=== PATIENT | female | born 1965 | race Caucasian/White ===

== ENCOUNTER 2018-08-22 09:26 | Emergency (ER) | payer OTHER ==
[~2018-08-22] VITALS: Ht 162.6 cm; Wt 113.4 kg
[2018-08-22] MEDS ORDERED: SODIUM CHLORIDE 0.9% 1000ML 1,000 ML IV STA (09:46)
[2018-08-22 10:02] LABS: BASOPHILS # (AUTO) 0.1 (0.0-0.1); BASOPHILS % 0.8 % (0.0-1.0); EOSINOPHILS # (AUTO) 0.2 (0.0-0.4); EOSINOPHILS % 3.2 % (0.0-6.0); HEMATOCRIT 42.8 % (34.2-44.1); LYMPHOCYTES # (AUTO) 2.9 (1.0-3.2); LYMPHOCYTES % 47.2 % (18.0-39.1); MEAN CORPUSCULAR VOLUME 94.3 fL (81-99); MONOCYTES # (AUTO) 0.5 (0.2-0.8); MONOCYTES % 7.9 % (4.4-11.3); NEUTROPHILS # (AUTO) 2.5 (2.1-6.9); NEUTROPHILS % 40.6 % (38.7-80.0); PLATELET COUNT 251 x10e3/uL (140-360); RED BLOOD COUNT 4.54 x10e6/uL (3.6-5.1); RED CELL DISTRIBUTION WIDTH 11.9 % (11.7-14.4)
[2018-08-22 10:06] LABS: CLARITY,URINE HAZY (CLEAR); COLOR,URINE YELLOW (YELLOW); LEUKOCYTE ESTERASE ,URINE 1+ (NEGATIVE)
[2018-08-22 10:07] LABS: BILIRUBIN,URINE NEGATIVE (NEGATIVE); KETONES,URINE NEGATIVE (NEGATIVE); NITRITE,URINE NEGATIVE (NEGATIVE); PROTEIN,URINE DIPSTICK NEGATIVE (NEGATIVE); URINE UROBILINOGEN 0.2 mg/dL (0.2 - 1)
[2018-08-22 10:08] LABS: BACTERIA,URINE FEW /HPF; EPITHELIAL CELLS,URINE FEW /LPF; RBC,URINE 0-5 /HPF (0-5); YEAST,URINE RARE
[2018-08-22 10:19] LABS: ALANINE AMINOTRANSFERASE 13 IU/L (0-55); ALBUMIN 3.7 g/dL (3.5-5.0); ALKALINE PHOSPHATASE 87 IU/L (40-150); AMYLASE 21 U/L (25-125); ANION GAP 16.3 mmol/L (8-16); BLOOD UREA NITROGEN 15 mg/dL (7-26); BUN/CREATININE RATIO 20 (6-25); CALCIUM 9.6 mg/dL (8.4-10.2); CARBON DIOXIDE 23 mmol/L (22-29); CHLORIDE 98 mmol/L (98-107); CREATINE KINASE 46 IU/L (29-168); CREATININE, SERUM 0.75 mg/dL (0.57-1.11); EST GLOMERULAR FILTRATION RATE > 60 ML/MIN (60-); GLUCOSE 285 mg/dL (74-118); LIPASE 18 U/L (8-78); MAGNESIUM 2.2 MG/DL (1.3-2.1); POTASSIUM 4.3 mmol/L (3.5-5.1); SODIUM 133 mmol/L (136-145)
[2018-08-22] MEDS ORDERED: DIATRIZOATE MEGL/DIATRIZOA SOD 30 ML BTL PO ONE (10:24)
[2018-08-22] MEDS ORDERED: LISINOPRIL10 MG PO (10:27)
[2018-08-22] MEDS ORDERED: TRESIBA SC (10:27)
[2018-08-22] MEDS ORDERED: CARBAMAZEPINE200 M2 PO (10:27)
[2018-08-22] MEDS ORDERED: FUROSEMIDE40 MG PO (10:27)
[2018-08-22] MEDS ORDERED: VIMPAT200 MG PO (10:27)
[2018-08-22] MEDS ORDERED: LORAZEPAM0.5 MG PO (10:27)
[2018-08-22] MEDS ORDERED: LEVETIRACETAM1000 MG PO (10:27)
[2018-08-22] MEDS ORDERED: HUMALOG100 UNIT/3 (10:27)
[2018-08-22] MEDS ORDERED: VENLAFAXINE HC150 MG PO (10:27)
[2018-08-22] MEDS ORDERED: HYDROCODON-ACE1 EA10 PO (10:27)
[2018-08-22] MEDS ORDERED: VENLAFAXINE H37.5 MG PO (10:27)
[2018-08-22] MEDS ORDERED: PROPRANOLOL HC120 MG PO (10:27)
[2018-08-22] MEDS ORDERED: MORPHINE SULFATE INJ 4 MG/ML INJ IV ONE (10:30)
[2018-08-22] MEDS ORDERED: PANTOPRAZOLE 40 MG 10ML VIAL IV ONE (10:30)
[2018-08-22] MEDS ORDERED: ONDANSETRON HCL INJ 2 MG/ML VIAL IV ONE (10:30)
[2018-08-22] MEDS ORDERED: CEFTRIAXONE SOD 1 GM VIAL IV ONE (10:45)
[2018-08-22] MEDS ORDERED: INSULIN REGULAR, HUMAN 100 UNIT/1 ML 3ML VIAL IV ONE (11:00)
--- NOTE | 2018-08-22 12:40 | Diagnostic Imaging Report ---
EXAMINATION: CT of the abdomen and pelvis with contrast. TECHNIQUE: Spiral CT images of the abdomen and pelvis were performed from the lung bases to the lesser trochanters after the intravenous administration of 100 cc of Isovue 370 and the oral administration of dilute Gastrografin. Coronal and sagittal reformatted images were obtained. COMPARISON: None. CLINICAL HISTORY:Pain in back and left abdomen DISCUSSION: ABDOMEN/PELVIS: LOWER THORAX:Linear atelectasis versus scarring in the lingula HEPATOBILIARY: Diffuse hepatic steatosis. No focal lesions. No intrahepatic biliary ductal dilation. Common bile duct measures 12 mm at the aniket hepatis and 7 mm at the pancreatic head. No radiopaque intraluminal filling defects. GALLBLADDER: Not visualized. SPLEEN: No splenomegaly. PANCREAS: No focal masses or ductal dilatation. 2.2 cm air and oral contrast containing structure between the second portion of the duodenum and the pancreatic head (series 2, image 31), consistent with a duodenal diverticulum. ADRENALS: No adrenal nodules. KIDNEYS/URETERS: 5 and 7 mm nonobstructing calculi in the right interpolar and mid to inferior region (series 2, images 37 and 42, respectively). No other renal or any ureteral calculi. No hydronephrosis or obstruction. No solid enhancing masses. PELVIC ORGANS/BLADDER: Bladder is unremarkable. Uterus unremarkable. No adnexal masses. PERITONEUM/RETROPERITONEUM: No free air or fluid. LYMPH NODES: No intra-abdominal, retroperitoneal, pelvic or inguinal lymphadenopathy. VESSELS: The celiac trunk,superior and inferior mesenteric and bilateral renal arteries are patent The portal, superior mesenteric and splenic veins are patent. GI TRACT: No bowel dilation or evidence of obstruction. No pericolonic inflammatory changes. Mild distal descending and proximal sigmoid diverticulosis, without diverticulitis. BONES AND SOFT TISSUE: No aggressive lytic lesions. Prominent abdominal pannus. IMPRESSION: 1. No acute abdominopelvic abnormalities. No bowel dilation or obstruction.. 2. 5 and 7 mm nonobstructing calculi in the right kidney. No other renal or ureteral calculi, hydronephrosis or obstruction. 3 Diffuse hepatic steatosis. 4. Mild prominence of the common bile duct, likely reflecting post cholecystectomy status. 5. Mild distal descending and proximal sigmoid colon diverticulosis, without diverticulitis. Signed by: Dr. Joce Ashraf M.D. on 08/22/2018 12:37 PM
[2018-08-22 13:11] VITALS: BP 108/96
[2018-08-22] MEDS ORDERED: SODIUM CHLORIDE 0.9% 50ML 50 ML ONE (20:13)
[2018-08-22] MEDS ORDERED: IOPAMIDOL 370 MG/ML 200 ML INFUS..BTL INJ ONE (20:13)
== END 2018-08-22 13:23 | disposition home or self-care (01) ==
LOC: ER 09:26
DX: R10.12 Left upper quadrant pain (principal); R10.32 Left lower quadrant pain; E11.65 Type 2 diabetes mellitus with hyperglycemia; Z79.4 Long term (current) use of insulin; I10 Essential (primary) hypertension; E66.9 Obesity, unspecified; Z68.41 Body mass index [BMI] 40.0-44.9, adult; R56.9 Unspecified convulsions; Z88.6 Allergy status to analgesic agent
CPT/HCPCS: 36415; 74177; 80053; 81001; 82150; 82550; 82553; 83690; 83735; 84484; 85025; 93005; 99284; J0696; J1817; J2270; J2405; J7030; Q9663; Q9967

== ENCOUNTER 2019-11-15 17:34 | Inpatient (IN) | payer OTHER ==
[~2019-11-15] VITALS: Ht 154.9 cm; Wt 126.2 kg
[~2019-11-15 17:34] MED LIST: CARBAMAZEPINE200 M2 PO; ETOMIDATE 2 MG/ML 10 ML INJ IV ONE; FUROSEMIDE40 MG PO; HUMALOG100 UNIT/3; HYDROCODON-ACE1 EA10 PO; LEVETIRACETAM1000 MG PO; LISINOPRIL10 MG PO; LORAZEPAM0.5 MG PO; PROPRANOLOL HC120 MG PO; SUCCINYLCHOLINE CHLORIDE 20 MG/ML 10ML VIAL ONE; TRESIBA SC; VENLAFAXINE H37.5 MG PO; VENLAFAXINE HC150 MG PO; VIMPAT200 MG PO
[2019-11-15] MEDS ORDERED: SODIUM CHLORIDE 0.9% 1000ML 1,000 ML IV STA (17:36)
--- OUTSIDE RECORDS SUMMARY | 2019-11-15 17:37 | XMS REPORT ---
Author Author [facility] Address Unknown Phone Unavailable Care Team Providers Care Family Service Counselor Name Role Phone Oleksandr ASKEW Unavailable Unavailable Marino LUNDBERGUYEN Unavailable Unavailable Problems This patient has no known problems. Allergies, Adverse Reactions, Alerts This patient has no known allergies or adverse reactions. Medications This patient has no known medications. Results Test Description Test Time Test Comments Text Results Atomic Results Result Comments POCT-GLUCOSE METER 2018-10-19 13:28:00 POC-GLUCOSE METER (BEAKER) (test pjxc=4003) 244 mg/dL 70-110 TESTED AT [facility] [address] [place] [id number] TROPONIN [id number] 13:05:00* Test Item Value Reference Range Comments TROPONIN I (BEAKER) (test phdd=794) < ng/mL 0.00-0.03 Troponin I (TnI) levels must be interpreted in the context of the presenting sym ptoms and the clinical findings. Elevated TnI levels indicate myocardial damage, but are not specific for ischemic heart disease. Elevated TnI levels are seen in patients with other cardiac conditions (including myocarditis and congestive h eart failure), and slight TnI elevations occur in patients with other conditions , including sepsis, renal failure, acidosis, acute neurological disease, and per sistent tachyarrhythmia.RAD, CHEST, 2 [id number] 11:52:00Reason for exam:-> HYPOTENSIONReason for exam:->HYPERGLYCEMIAFINAL REPORT Chest, PA and lateral. History: Hypotension. Hyperglycemia. Comparison: 03/14/2015. Discussion: The cardiomediastinal silhouette and pulmonary vasculature are within normal limits. The lungs are clear without evidence of consolidation or effusion. There are no acute osseous abnormalities. The soft tissues are unremarkable. IMPRESSION: No acute cardiopulmonary abnormality. Signed: Isiah Escobar Verified Date/Time: 10/19/2018 11:52:04 Reading Location: [facility] Radiology Reading Room ALYSIS W/ REFLEX URINE [id number] 11:29:00* Test Item Value Reference Range Comments COLOR (BEAKER) (test bsus=414) Light Yellow CLARITY (BEAKER) (test gwqc=864) Clear SPECIFIC GRAVITY UA (BEAKER) (test slds=269) 1.011 1.001-1.035 PH UA (BEAKER) (test cypn=472) 5.0 5.0-8.0 PROTEIN UA (BEAKER) (test tfzo=202) Negative Negative GLUCOSE UA (BEAKER) (test wvzk=644) >1000 mg/dL Negative KETONES UA (BEAKER) (test xztt=866) Negative Negative BILIRUBIN UA (BEAKER) (test tvyl=833) Negative Negative BLOOD UA (BEAKER) (test frwr=124) Negative Negative NITRITE UA (BEAKER) (test qcyb=219) Negative Negative LEUKOCYTE ESTERASE UA (BEAKER) (test zpcn=918) Small Negative UROBILINOGEN UA (BEAKER) (test vcpl=646) 0.2 mg/dL 0.2-1.0 RBC UA (BEAKER) (test idix=776) < /HPF WBC UA (BEAKER) (test lczp=234) 2 /HPF SQUAMOUS EPITHELIAL (BEAKER) (test uuym=384) 2 /HPF CRYSTALS, URINE (BEAKER) (test zqbt=7643) Rare SOURCE(BEAKER) (test txkx=5410) BLOOD GAS, [id number] 11:21:00* Test Item Value Reference Range Comments PH VENOUS (BEAKER) (test orgc=850) 7.33 7.32-7.42 PCO2 VENOUS (BEAKER) (test fnxf=766) 56 mmHg 41-51 PO2 VENOUS (BEAKER) (test vump=331) 34 mmHg 25-40 O2 SATURATION VENOUS (BEAKER) (test rwso=206) 55.8 % 40.0-70.0 HCO3 VENOUS (BEAKER) (test pudi=895) 28 mmol/L 21-29 BASE EXCESS VENOUS (BEAKER) (test xyzt=761) 1.5 mmol/L -2.0-3.0 PATIENT TEMPERATURE (BEAKER) (test qhmu=7189) 38.0 C FIO2 (BEAKER) (test xsld=4974) 21.0 % CT, BRAIN, WITHOUT [id number] 10:58:00Reason for exam:-> HYPOTENSIONReason for exam:->HYPERGLYCEMIAReason for exam:->dizzinessIs the patient ?->NoWhat is the patient's sedation requirement?->No Sedation FINAL REPORT CT, BRAIN, WITHOUT CONTRAST CLINICAL INDICAT ION: DizzinessHYPOTENSIONHYPERGLYCEMIAdizziness COMPARISON: September 09, 2012 T ECHNIQUE: Noncontrast axial CT imaging of the brain and skull. DOSE REDUCTION: Dose modulation, iterative reconstruction, and/or weight-based adjustment of the mA/kV was utilized to reduce the radiation dose to as low as reasonably achiev able. FINDINGS:Cerebral parenchyma: Unremarkable.Midline structures: Normally po sitioned.Cerebellum and brainstem: Normal.Ventricles: Normal volume.Extra-axial spaces: Unremarkable. Calvarium and skull base: Intact.Paranasal sinuses and mas toid air cells: Visible chambers are clear.Orbital contents: Included portions u nremarkable. Additional findings: None. IMPRESSION: No acute intracranial abnor mality. If there is persistent clinical concern for intracranial pathology, MR e xamination is recommended for further characterization. Signed: JR Daley Robert MDReport Verified Date/Time: 10/19/2018 10:58:52 Reading Location: [address] Neuro Reading Room ONIN [id number] 10:41:00* Test Item Value Reference Range Comments TROPONIN I (BENICA) (test kydc=186) < ng/mL 0.00-0.03 Troponin I (TnI) levels must be interpreted in the context of the presenting sym ptoms and the clinical findings. Elevated TnI levels indicate myocardial damage, but are not specific for ischemic heart disease. Elevated TnI levels are seen in patients with other cardiac conditions (including myocarditis and congestive h eart failure), and slight TnI elevations occur in patients with other conditions , including sepsis, renal failure, acidosis, acute neurological disease, and per sistent tachyarrhythmia.[id number] 10:33:00* Test Item Value Reference Range Comments MAGNESIUM (BEAKER) (test tfnx=454) 1.6 mg/dL 1.6-2.6 BASIC METABOLIC [id number] 10:33:00* Test Item Value Reference Range Comments SODIUM (BEAKER) (test stns=309) 134 meq/L 136-145 POTASSIUM (BEAKER) (test oroe=226) 3.9 meq/L 3.5-5.1 CHLORIDE (BEAKER) (test fjsh=565) 100 meq/L 98-107 CO2 (BEAKER) (test glol=876) 22 meq/L 22-29 BLOOD UREA NITROGEN (BEAKER) (test lrfa=015) 12 mg/dL 7-21 CREATININE (BEAKER) (test ixlc=060) 0.72 mg/dL 0.57-1.25 GLUCOSE RANDOM (BEAKER) (test nvbw=756) 355 mg/dL 70-105 CALCIUM (BEAKER) (test tniy=315) 8.6 mg/dL 8.4-10.2 EGFR (BEAKER) (test owkp=7014) 85 mL/min/1.73 sq m ESTIMATED GFR IS NOT ACCURATE CREATININE CLEARANCE IN PREDICTING GLOMERULAR FILTRATION RATE. ESTIMATED GFR IS NOT APPLICABLE FOR DIALYSIS PATIENTS. CBC W/PLT COUNT & AUTO [id number] 10:14:00* Test Item Value Reference Range Comments WHITE BLOOD CELL COUNT (BEAKER) (test utbo=391) 6.6 K/ L 3.5-10.5 RED BLOOD CELL COUNT (BEAKER) (test knso=621) 4.19 M/ L 3.93-5.22 HEMOGLOBIN (BEAKER) (test bkmw=931) 13.9 GM/DL 11.2-15.7 HEMATOCRIT (BEAKER) (test ypki=937) 41.5 % 34.1-44.9 MEAN CORPUSCULAR VOLUME (BEAKER) (test hbqn=954) 99.0 fL 79.4-94.8 MEAN CORPUSCULAR HEMOGLOBIN (BEAKER) (test akgf=402) 33.2 pg 25.6-32.2 MEAN CORPUSCULAR HEMOGLOBIN CONC (BEAKER) (test vfxb=203) 33.5 GM/DL 32.2-35.5 RED CELL DISTRIBUTION WIDTH (BEAKER) (test tpin=025) 12.4 % 11.7-14.4 PLATELET COUNT (BEAKER) (test nrqt=302) 212 K/CU MM 150-450 MEAN PLATELET VOLUME (BEAKER) (test hira=484) 9.4 fL 9.4-12.3 NUCLEATED RED BLOOD CELLS (BEAKER) (test zqxc=556) 0 /100 WBC 0-0 NEUTROPHILS RELATIVE PERCENT (BEAKER) (test mczv=218) 59 % LYMPHOCYTES RELATIVE PERCENT (BEAKER) (test fsjz=871) 31 % MONOCYTES RELATIVE PERCENT (BEAKER) (test xbpw=326) 8 % EOSINOPHILS RELATIVE PERCENT (BEAKER) (test aefj=180) 2 % BASOPHILS RELATIVE PERCENT (BEAKER) (test jwog=758) 1 % NEUTROPHILS ABSOLUTE COUNT (BEAKER) (test oein=840) 3.85 K/ L 1.56-6.13 LYMPHOCYTES ABSOLUTE COUNT (BEAKER) (test qgmw=758) 2.04 K/ L 1.18-3.74 MONOCYTES ABSOLUTE COUNT (BEAKER) (test thnu=052) 0.50 K/ L 0.24-0.36 EOSINOPHILS ABSOLUTE COUNT (BEAKER) (test hbdw=295) 0.11 K/ L 0.04-0.36 BASOPHILS ABSOLUTE COUNT (BEAKER) (test ptwc=053) 0.04 K/ L 0.01-0.08 IMMATURE GRANULOCYTES-RELATIVE PERCENT (BEAKER) (test jvud=5191) 0 % 0-1 POCT-GLUCOSE [id number] 09:48:00* Test Item Value Reference Range Comments POC-GLUCOSE METER (BEAKER) (test jluf=2620) 346 mg/dL 70-110 TESTED AT [address] [address] MR, SPINE, THORACIC, WITHOUT [id number] 11:30:00FINAL REPORT MR Thoracic spine without contrast. CLINICAL HISTORY: PAIN IN THORACIC SPINE TECHNIQUE: MRI of the thoracic spine utilizing sagittal T1, T2, STIR, and axial T1, T2-weighted images. COMPARISON: None FINDINGS: There is maintenance of the thoracic curvature and alignment. The vertebral body heights and marrow signal are maintained. At T4-T5, there is a 2 mm right paracentral disc protrusion contacting the cord without significant deformity or central canal stenosis. At T8-T9, there is a 3 mm right paracentral disc protrusion contouring the ventral right cord without reactive cord signal or significant central canal stenosis. The thoracic disc levels are otherwise unremarkable w ithout central canal stenosis. The thoracic cord is otherwise normal contour and caliber without signal abnormality. IMPRESSION: At T4-T5 and T8-T9, small right paracentral disc protrusions contact the cord without abnormal cord signal or s ignificant central canal stenosis. Signed: Yenifer Lopez MDReport Verified Date/ Time: 08/26/2018 11:30:02 Reading Location: [facility]013[facility] Neuro Reading Room ABDOMEN/PELVIS [id number] 12:30:00 [place] [address] Patient Name: JOHAN DE SOUZA MR #: [id number] : 1965 Age/Sex: 52/F Req #: [id number] Adm Physician: Ordered by: ANNIE LUNDBERG MD Report #: [id number] Location: ER Room/Bed: Procedure: [id number] CT /CT ABDOMEN/PELVIS W Exam Date: Exam Time: REPORT STATUS: Signed EXAMINATION: CT of the abdomen and pelvis with contrast. TECHNIQUE: Spiral CT images of the abdomen and pelvis were performed from the lung bases to the lesser trochan ters after the intravenous administration of 100 cc of Isovue 370 and the oral administration of dilute Gastrografin. Coronal and sagittal reformatted imag es were obtained. COMPARISON: None. CLINICAL HISTORY:Pain in back and left abdomen DISCUSSION: ABDOMEN/PELVIS: LOWER THORAX:Linear atelectasis versus scarring in the lingula HEPATOBILIARY: Diffuse hepatic steatosis. No focal lesions. No intrahepatic biliary ductal dilation. Common bile duct measures 12 mm at the aniket hepatis and 7 mm at the pancreatic head. No radiopaque intraluminal filling defects. GALLBLADDER: Not visualized. SPLEEN: No splenomegaly. PANCREAS: No focal masses or ductal dila tation. 2.2 cm air and oral contrast containing structure between the second p ortion of the duodenum and the pancreatic head (series 2, image 31), consisten t with a duodenal diverticulum. ADRENALS: No adrenal nodules. KIDNEYS/ URETERS: 5 and 7 mm nonobstructing calculi in the right interpolar and mid to inferior region (series 2, images 37 and 42, respectively). No other renal or any ureteral calculi. No hydronephrosis or obstruction. No solid enhancing mas ses. PELVIC ORGANS/BLADDER: Bladder is unremarkable. Uterus unremarkable. N o adnexal masses. PERITONEUM/RETROPERITONEUM: No free air or fluid. LYMPH NODES: No intra-abdominal, retroperitoneal, pelvic or inguinal lymphaden opathy. VESSELS: The celiac trunk,superior and inferior mesenteric and bila teral renal arteries are patent The portal, superior mesenteric and splenic veins are patent. GI TRACT: No bowel dilation or evidence of obstruction. No pericolonic inflammatory changes. Mild distal descending and proximal sigm oid diverticulosis, without diverticulitis. BONES AND SOFT TISSUE: No agg ressive lytic lesions. Prominent abdominal pannus. IMPRESSION: 1. No acute abdominopelvic abnormalities. No bowel dilation or obstruction.. 2. 5 and 7 mm nonobstructing calculi in the right kidney. No other renal or ur eteral calculi, hydronephrosis or obstruction. 3 Diffuse hepatic steatosis. 4. Mild prominence of the common bile duct, likely reflecting post cholecystec najma status. 5. Mild distal descending and proximal sigmoid colon diverticulos is, without diverticulitis. Signed by: Dr. Rogelio Ashraf M.D. on 12:37 PM Dictated By: ROGELIO ASHRAF MD 1237 Transcribed By: CHRIS on 08/22/18 1237 COPY TO: ANNIE LUNDBERG MD
[2019-11-15] MEDS ORDERED: DEXTROSE 50% SYRINGE 50 ML IV STA (17:44)
[2019-11-15] MEDS ORDERED: CALCIUM GLUCONATE 10% INJ 4.65 MEQ in SODIUM CHLORIDE 0.9% 50ML 50 ML IV ONE (17:45)
[2019-11-15] MEDS ORDERED: GLUCAGON FOR INJ 1 MG VIAL IV ONE (17:45)
--- NOTE | 2019-11-15 18:00 | NUR ---
client unable to maintain her own airway, client having sonorous respirations. client o2 sats down to 88%, Dr. Monroe made aware. Dr. Monroe requested central line kit and RT as well as inutabation meds and equipment at bedside.
[2019-11-15] MEDS: PROPOFOL IV EMULSION 10MG/ML 100 ML IV PRN (18:08)
[2019-11-15] MEDS ORDERED: PROPOFOL IV EMULSION 10MG/ML 100 ML ONE (18:08)
[2019-11-15] MEDS ORDERED: SUCCINYLCHOLINE CHLORIDE 20 MG/ML 10ML VIAL IV STA (18:21)
[2019-11-15] MEDS ORDERED: ETOMIDATE 2 MG/ML 10 ML INJ IV STA (18:21)
[2019-11-15] MEDS ORDERED: PROPOFOL IV EMULSION 10MG/ML 100ML BTL IV PRN (18:30)
[2019-11-15] MEDS ORDERED: LEVETIRACETAM 500MG/5ML VIAL 500 MG in SODIUM CHLORIDE 0.9% 100 ML 100 ML IV SCH (18:30)
[2019-11-15 19:22] LABS: ABG PCO2 35 mmHg (41-51); ABG PH 7.44 (7.31-7.41); ABG PO2 182 mmHg (80-105)
[2019-11-15 19:23] LABS: ABG HCO3 24 mmol/L (23-28)
[2019-11-15] MEDS: SODIUM CHLORIDE 0.9% 1000ML 1,000 ML IV SCH (19:55)
[2019-11-15 20:23] LABS: BASOPHILS # (AUTO) 0.1 (0.0-0.1); BASOPHILS % 0.4 % (0.0-1.0); EOSINOPHILS % 0.2 % (0.0-6.0); HEMATOCRIT 39.4 % (34.2-44.1); HEMOGLOBIN 13.6 g/dL (12.0-16.0); LYMPHOCYTES # (AUTO) 1.5 (1.0-3.2); LYMPHOCYTES % 12.5 % (18.0-39.1); MEAN CORPUSCULAR HEMOGLOBIN 32.9 pg (28-32); MEAN CORPUSCULAR HGB CONC 34.5 g/dL (31-35); MEAN CORPUSCULAR VOLUME 95.4 fL (81-99); MONOCYTES # (AUTO) 0.5 (0.2-0.8); MONOCYTES % 4.3 % (4.4-11.3); NEUTROPHILS # (AUTO) 9.8 (2.1-6.9); NEUTROPHILS % 81.9 % (38.7-80.0); PLATELET COUNT 229 x10e3/uL (140-360); RED BLOOD COUNT 4.13 x10e6/uL (3.6-5.1); RED CELL DISTRIBUTION WIDTH 11.9 % (11.7-14.4)
[2019-11-15 20:43] LABS: ALANINE AMINOTRANSFERASE 25 IU/L (0-55); ALBUMIN 2.9 g/dL (3.5-5.0); ALKALINE PHOSPHATASE 77 IU/L (40-150); ANION GAP 14.7 mmol/L (8-16); BLOOD UREA NITROGEN 14 mg/dL (7-26); BUN/CREATININE RATIO 20 (6-25); CALCIUM 8.1 mg/dL (8.4-10.2); CARBON DIOXIDE 24 mmol/L (22-29); CHLORIDE 103 mmol/L (98-107); CREATINE KINASE 47 IU/L (29-168); CREATININE, SERUM 0.69 mg/dL (0.57-1.11); EST GLOMERULAR FILTRATION RATE > 60 ML/MIN (60-); GLUCOSE 147 mg/dL (74-118); POTASSIUM 3.7 mmol/L (3.5-5.1); SODIUM 138 mmol/L (136-145)
[2019-11-15] MEDS ORDERED: DEXTROSE 50% SYRINGE 50 ML IV ONE (20:51)
--- NOTE | 2019-11-15 21:04 | Diagnostic Imaging Report ---
EXAM: CHEST SINGLE (PORTABLE) DATE: 11/15/2019 5:36 PM INDICATION: Requisition indicates overdose ^ERMD ORDER ^Y COMPARISON: None FINDINGS: Lines and tubes: Endotracheal tube is present with the tip approximately 1.5 cm above the shelley. Cardiac silhouette appears enlarged, likely accentuated by low lung volumes. Patchy opacities are present in both upper lobes. There is atelectasis at the left lung base. No pneumothorax is evident. Upper abdomen unremarkable. No acute bony abnormality. IMPRESSION: 1. Apparent cardiomegaly and bilateral pulmonary opacities. Findings may be accentuated by low lung volumes. Multifocal pneumonia or aspiration is also a consideration. 2. Endotracheal tube with the tip 1.5 cm from the shelley. Signed by: Dr. Luis Johnston M.D. on 11/15/2019 9:01 PM
[2019-11-15 21:43] LABS: SALICYLATE < 5.0 mg/dL (0-30)
[2019-11-15 21:59] LABS: CLARITY,URINE SL CLOUDY (CLEAR); COLOR,URINE YELLOW (YELLOW)
[2019-11-15 22:00] LABS: AMPHETAMINES SCREEN,URINE NEGATIVE (NEGATIVE); BENZODIAZEPINES SCREEN,URINE NEGATIVE (NEGATIVE); BILIRUBIN,URINE NEGATIVE (NEGATIVE); KETONES,URINE NEGATIVE (NEGATIVE); LEUKOCYTE ESTERASE ,URINE NEGATIVE (NEGATIVE); NITRITE,URINE NEGATIVE (NEGATIVE); PHENCYCLIDINE SCREEN,URINE NEGATIVE (NEGATIVE); PROTEIN,URINE DIPSTICK NEGATIVE (NEGATIVE); URINE UROBILINOGEN 0.2 mg/dL (0.2 - 1)
[2019-11-15 22:11] LABS: BACTERIA,URINE FEW /HPF; EPITHELIAL CELLS,URINE FEW /LPF; HYALINE CASTS 0-1 (0-1)
[2019-11-15] MEDS ORDERED: HYDRALAZINE HCL 20 MG/ML VIAL IV PRN (22:15)
[2019-11-15] MEDS ORDERED: ONDANSETRON HCL INJ 2MG/ML 2ML 2 MG/ML VIAL IV PRN (22:15)
[2019-11-15 22:47] VITALS: BP 126/66
[2019-11-15 23:00] VITALS: BP 100/60
[2019-11-15] MEDS ORDERED: DEXTROSE 50% SYRINGE 50 ML IV PRN (23:15)
[2019-11-15] MEDS ORDERED: CARBAMAZEPINE 200 MG TAB PO ONE (23:30)
[2019-11-15] MEDS ORDERED: ENOXAPARIN SOD INJ 40 MG/0.4 ML SYR SC ONE (23:30)
[2019-11-16] VITALS (27 sets, daily range): BP systolic 93–154; BP diastolic 34–98
[2019-11-16] MEDS: WATER STERILE FOR IRRIG 1000 ML PLCT IR SCH ×7 (00:01→22:00)
[2019-11-16] MEDS ORDERED: LEVETIRACETAM 500 MG/5 ML VIAL IV ONE (00:16)
[2019-11-16] MEDS ORDERED: SODIUM CHLORIDE 0.9% 100 ML ONE (00:18)
[2019-11-16] MEDS: LEVETIRACETAM 500MG/5ML VIAL 1,000 MG in SODIUM CHLORIDE 0.9% 100 ML 100 ML IV SCH ×3 (00:19→21:50)
[2019-11-16] MEDS: PIPER-TAZ 3.375 GM 50 ML IV SCH ×4 (00:19→22:40)
--- NOTE | 2019-11-16 01:27 | NUR ---
RECEIVED CALL FROM AMAN WITH THE [facility] IN [place] TO RECEIVE UPDATES ON PATIENT STATUS. UPDATES GIVEN. PATIENTS CASE #[id number]
--- NOTE | 2019-11-16 01:30 | History and Physical ---
CHIEF COMPLAINT: Drug overdose, suicide attempt. HISTORY OF PRESENT ILLNESS: A 53-year-old female, morbidly obese, history of type 2 diabetes, seizures on 3 antiseizure medications, hypertension, also history of depression on anti-depression medications, presented from home after a suicide attempt with home medications. According to the at bedside, the patient has been voicing over the last 2 months that she wanted to hurt herself. Of note, she has voiced that she wanted to go and because her mom several years ago. He reports that she has been having uncontrolled diabetes as well as multiple frequencies in her seizures recently, in which she felt very tired of dealing with all these comorbidities. Of note, about 10 years ago, she had a suicide attempt according to the nursing staff when they interviewed the , but during my interview, he denies that this ever occurred 10 years ago. The patient took approximately 78 tablets of propranolol at home as well as some possible opioids, presumed to be tramadol, unknown amount. The patient was brought in by the family and was immediately intubated by the ER physician. The patient was seen and evaluated at bedside on the medical floor. She is currently intubated on sedation with propofol. I interviewed the family at bedside and I asked all the questions pertinent to this particular case. REVIEW OF SYSTEMS: Drug overdose, unable to obtain the rest of the 14-point review of systems as the patient is currently intubated. ALLERGIES: TO TOPIRAMATE. MEDICATIONS: Home medications currently not available at this time, but we do know she takes Keppra, Vimpat, carbamazepine, as well as lisinopril according to the . PAST MEDICAL HISTORY: Hypertension, seizures, history of depression, history of a suicide attempt in the past. PAST SURGICAL HISTORY: Unknown. FAMILY HISTORY: Hypertension and diabetes. SOCIAL HISTORY: She is . No reports of drugs, alcohol, or any smoking history. She has children. LABORATORY FINDINGS: Show white count 11.9, hemoglobin 13.6, hematocrit 39, and platelets of 229. Blood gas shows a pH of 7.44, pCO2 of 35, PaO2 of 182, bicarbonate 24. Chemistry, sodium 138, potassium 3.7, chloride 103, bicarb 24, anion gap of 14. BUN is 14, creatinine 0.69. Glucose 147, lactic acid 1.5, calcium 8.1, total bilirubin 0.4. AST 50, ALT 25, alkaline phosphatase 77. CK 47, troponin 0.130, total protein 5.8, albumin 2.9. Urinalysis was negative. Urine drug screen negative. Acetaminophen negative. Salicylate negative. Ethyl alcohol negative. MICROBIOLOGY: Blood cultures are pending. IMAGING STUDIES: Chest x-ray shows cardiomegaly with bilateral pulmonary opacities. Consistent with possible pneumonia or aspiration. PHYSICAL EXAMINATION: VITAL SIGNS: Temperature is 97.2, pulse 48, respiratory rate is 16. Her blood pressure last one recorded 105/56, pulse ox 100%. She is on a mechanical ventilator. GENERAL: Intubated and sedated. HEENT: Intubated and sedated. PULMONARY: Clear to auscultation bilaterally. No wheezing, rales, or rhonchi. No crackles appreciated. CARDIOVASCULAR: Positive S1, S2. No murmurs, rubs, or gallops appreciated. ABDOMEN: Soft, nondistended, and nontender to palpation. Bowel sounds present. MUSCULOSKELETAL: Unable to assess, currently on sedation. NEUROLOGIC: Currently on sedation. SKIN: Intact. Warm to touch. Good cap refill. PSYCHIATRIC: Currently sedated. EXTREMITIES: No edema appreciated. IMPRESSION: 1. Acute respiratory failure, secondary to drug overdose, now on mechanical ventilator. 2. Suicide attempt with drug overdose, history of suicide attempt. 3. Aspiration pneumonia. 4. History of seizures. 5. History of type 2 diabetes. 6. Hypertension. PLAN: At this time, the patient is intubated, sedated, currently pretty stable. Pulmonary Critical Care was consulted for critical care management. As for her possible aspiration pneumonia, blood cultures have been collected, was started on IV Zosyn. As for history of seizures, we are going to restart all her antiseizure medications once they are available from the family. She is on Keppra, currently IV. We will get Neurology consultation as well. As for her drug overdose, Psychiatry is consulted after post extubation for possible inpatient psychiatric evaluation. The patient has had attempts in the past apparently about 10 years ago. We are going to restart her on insulin sliding scale. For now, she may be extubated tomorrow if she does well, so we will consider alternative nutrition with an OG tube if still intubated. She will be on Lovenox for DVT prophylaxis. CONSULTANTS INVOLVED: Pulmonary Critical Care, Neurology, and Psychiatry. The patient is currently in the ICU and we will continue to follow. I had a long discussion with the family at bedside and discussed overall plan of care with the Critical Care physician present as well. They verbalized understanding. Agree with plan of care. MD SHANITA Marx/MODL /[id number]
[2019-11-16] MEDS: PROPOFOL IV EMULSION 10MG/ML 100 ML IV PRN (03:23)
[2019-11-16 05:12] LABS: BASOPHILS % 0.4 % (0.0-1.0); EOSINOPHILS % 0.4 % (0.0-6.0); HEMOGLOBIN 12.6 g/dL (12.0-16.0); LYMPHOCYTES # (AUTO) 2.3 (1.0-3.2); LYMPHOCYTES % 21.4 % (18.0-39.1); MEAN CORPUSCULAR HEMOGLOBIN 32.3 pg (28-32); MEAN CORPUSCULAR HGB CONC 34.1 g/dL (31-35); MEAN CORPUSCULAR VOLUME 94.9 fL (81-99); NEUTROPHILS # (AUTO) 7.3 (2.1-6.9); NEUTROPHILS % 68.4 % (38.7-80.0); PLATELET COUNT 206 x10e3/uL (140-360); RED CELL DISTRIBUTION WIDTH 11.9 % (11.7-14.4)
--- NOTE | 2019-11-16 05:30 | Consultation ---
DATE OF CONSULTATION: 11/15/2019 Pulmonary Critical Care Consult REASON FOR REFERRAL: Respiratory failure. HISTORY OF PRESENT ILLNESS: Ms. Jensen is a pleasant 53-year-old female with acute respiratory failure. The patient with longstanding history of epilepsy, currently on 3 therapy. She at baseline often has 2 to 3 events per week. Often, petit mal events as family states. The patient with history of depression as well and is on Effexor 175 mg a day. Recent patient neurologist changed therapy and changed medications. For the last 3 days, the patient has been sighting more and more dissatisfaction with her life. Today, letter was found by family. Suicide note found the patient was not present but the patient was found in the field somewhere in the neighborhood. The patient reportedly took at least seven propranolol and 2 to 3 trazodone. The patient came to emergency room and was noted with heart rate to 46, blood pressure 93/63. Temperature 96.4 rectal. The patient clinically had excess saliva in her throat and possibly aspirated. The patient was brought to emergency room for emergency evaluation. At this point, the patient was immediately intubated due to poor mentation and inability to protect airway. Chest x-ray with bilateral lung opacities considering the possibility of multifocal pneumonia/aspiration. The patient's creatinine was 0.69, calcium 8.1, 3.7 potassium, LFTs mostly unremarkable with albumin 2.9. The patient was given some emergency treatment for beta-alvin toxicity. I am consulted. PAST MEDICAL HISTORY: Hypertension, diabetes, on injections, neurologic, epilepsy, history of cavernous malformation of brain, depression. MEDICATIONS: Medications list per nursing record, reviewed records that were present. ALLERGIES: TOPIRAMATE. SOCIAL HISTORY: No smoking, no drinking, no drugs. Her is with [employer], clergy. FAMILY HISTORY: Noncontributory. REVIEW OF SYSTEMS: Cannot get as the patient is intubated. OBJECTIVE: VITAL SIGNS: Noted, reviewed per the chart record. Now on pressors, on propofol and normal saline IV fluid. Blood pressure up to 150s/40s. GENERAL: Appears to be waking up on ventilator, intubated. HEENT: Normocephalic, atraumatic. NECK: Supple. Throat midline. LUNGS: Bilateral air entry, moderate rhonchi bilaterally, few rales bilaterally. CARDIOVASCULAR: S1, S2. No murmurs, rubs, or gallops. ABDOMEN: Soft, nontender. EXTREMITIES: No clubbing, no cyanosis. There is no edema. INTEGUMENT: No rash or purpura. LABORATORY DATA: Urinalysis with no significant urinary sediment. IMPRESSION AND PLAN: 1. Acute respiratory failure, intubated. 2. Encephalopathy, under evaluation. Toxic/metabolic plus minus other etiologies. 3. Aspiration pneumonitis. 4. negative pressure pulmonary edema. 5. History of epilepsy, cavernous malformation, brain. 6. Hypertension. 7. Diabetes. 8. Depression. 9. Suicide attempt. Continue current treatment. Maintain intubated. Ventilator support. Follow up the opacities in the lungs. Unclear if the patient will be extubated will depend on how the lung capacity is evolved in the next day. Continue IV fluids. Glucagon as needed. Pressors as needed. Atropine as needed for any bradycardia, but the patient looks to be better controlled and hopefully the propranolol is wearing off. Greater than 30 minutes in direct care on this day and coordination review. Thank you very much, Dr. Pelaez, for this consult. Please call for questions. MD HALEIGH Hobbs/MODL /[id number]
[2019-11-16 05:56] LABS: CREATINE KINASE MB 1.4 ng/mL (0-5.0)
[2019-11-16 06:08] LABS: ALANINE AMINOTRANSFERASE 21 IU/L (0-55); ALBUMIN 2.8 g/dL (3.5-5.0); ALKALINE PHOSPHATASE 72 IU/L (40-150); BLOOD UREA NITROGEN 10 mg/dL (7-26); BUN/CREATININE RATIO 17 (6-25); CARBON DIOXIDE 23 mmol/L (22-29); CHLORIDE 108 mmol/L (98-107); EST GLOMERULAR FILTRATION RATE > 60 ML/MIN (60-); GLUCOSE 89 mg/dL (74-118); SODIUM 141 mmol/L (136-145)
[2019-11-16 06:09] LABS: MAGNESIUM 1.5 MG/DL (1.3-2.1); PHOSPHORUS 3.4 MG/DL (2.3-4.7)
--- NOTE | 2019-11-16 06:31 | Diagnostic Imaging Report ---
EXAMINATION: CHEST SINGLE (PORTABLE) COMPARISON: Chest x-ray 11/15/2019 INDICATION: Intubated ^pneumonia ^[id number] ^0540 DISCUSSION: Frontal view of the chest obtained at 0542 hours. HEART AND MEDIASTINUM: Stable cardiomegaly. LINES: Endotracheal tube terminates 2 to 3 cm above the shelley. Enteric tube extends past the diaphragm LUNGS: Low lung volumes and bibasilar atelectasis. Alveolar edema is improving. PLEURA: No large effusions. No pneumothorax. BONES AND SOFT TISSUES: No focal osseous lesion. The soft tissues are normal. IMPRESSION: Support devices as described above. Low lung volumes and bibasilar atelectasis. Improved alveolar edema. Signed by: Dr. Raquel Pruett MD on 11/16/2019 6:29 AM
[2019-11-16] MEDS: SODIUM CHLORIDE 0.9% 1000ML 1,000 ML IV SCH ×3 (06:32→22:40)
[2019-11-16] MEDS: INSULIN REGULAR, HUMAN 100 UNIT/1 ML 3ML VIAL SQ SCH ×4 (07:30→21:00)
[2019-11-16] MEDS ORDERED: POTASSIUM CHLORIDE 20MEQ/100ML 200 ML IV ONE (08:00)
[2019-11-16] MEDS: ACETAMINOPHEN 325 MG TAB PO PRN ×2 (08:33→17:32)
[2019-11-16] MEDS ORDERED: CARBAMAZEPINE 200 MG TAB PO SCH (09:00)
[2019-11-16] MEDS ORDERED: LORAZEPAM INJ 2 MG/ML VIAL IM PRN (11:30)
[2019-11-16] MEDS ORDERED: HALOPERIDOL LACTATE 5 MG/ML VIAL IM PRN (11:30)
--- NOTE | 2019-11-16 12:09 | NUR ---
Pulmonary Critical Care Medicine DATE 11/16/2019 SUBJECTIVE: PATIENT wide awake today, despite propofol 10 mcg/kg/hr patient with VC 1.4 NIF -30, oxygen weaned to 40% fio2 still intubated moderate thick airway secretions CXR better REVIEW OF SYSTEMS: Cannot get as the patient is intubated. OBJECTIVE: VITAL SIGNS: Reviewed per the chart record. GENERAL: Awake on ventilator, intubated. HEENT: Normocephalic, atraumatic. NECK: Supple. Throat midline. LUNGS: Bilateral air entry, moderate rhonchi bilaterally CARDIOVASCULAR: S1, S2. No murmurs, rubs, or gallops. ABDOMEN: Soft, nontender. EXTREMITIES: No clubbing, no cyanosis. no edema. INTEGUMENT: No rash or purpura. LABORATORY DATA: k 3.0, cr 0.6. wbc 10.6, plt 206 IMPRESSION AND PLAN: 1. Acute respiratory failure, intubated. 2. Encephalopathy, under evaluation. Toxic/metabolic. 3. Aspiration pneumonitis. 5. History of epilepsy, cavernous malformation 6. Hypertension. 7. Diabetes. 8. Depression. 9. Suicide attempt. 78 propanolol, few tramadol Maintain intubated. Ventilator support. Weaning / SAT / SBT Encourage expectoration, significant aspiration surmised. But patient is clinically strong with excellent weaning parameters/mechanics Continue IV fluids. Will need sitter after extubation Thank you very much, Dr. Pelaez, for this consult. Please call for questions. Greater than 30 minutes in direct care on this day and coordination, including acquisition of sitter
[2019-11-16] MEDS ORDERED: CARBAMAZEPINE 100 MG TAB PO ONE (12:30)
[2019-11-16] MEDS ORDERED: HOME MEDICATION--PATIENTS OWN PO SCH (13:00)
[2019-11-16] MEDS ORDERED: CARBAMAZEPINE 200 MG TAB PO ONE (13:00)
[2019-11-16] MEDS ORDERED: VIMPAT 200 MG PO SCH (13:45)
[2019-11-16] MEDS: ENOXAPARIN SOD INJ 40 MG/0.4 ML SYR SC SCH (16:06)
[2019-11-16] MEDS ORDERED: VIMPAT 200 MG PO ONE (16:30)
--- NOTE | 2019-11-16 16:30 | NUR ---
INFORMED PT IS A ANGEL SCHUSTER. INFORMED DR. RICHARDSON OF THIS. Addendum: 11/16/19 at [address] BILLINGSLEY IS THE ANGEL TELLO.
--- NOTE | 2019-11-16 19:23 | NUR ---
Pt's requested RN use pt's glucometer scanner on upper L arm device instead of sticking the patient for blood sugars. brought glucometer scanner to bedside. Dr. Mills's office and Dr. Muro notified of new consults. Dr. Milan informed of potassium, replacement orders given. Orders given to wean, sedation held, respiratory at bedside. Dr. Milan instructed seizure meds to be givne thru NGT before extubation. to bring home meds due to pharmacy not carrying. Per Dr. Pelaez pt will require 1:1 sitter. Pt extubated at 1330 to 3L NC. 1:1 sitter at bedside. RN assessed swallowing with ice chips and sips of water, findings conveyed to Dr. Milan. Orders given to remove NGT. Pt does not appear to be in any distress at this time. Will continue to monitor.
--- NOTE | 2019-11-16 19:30 | NUR ---
Poison control contacted RN twice throughout the shift and were updated with pt's vitals signs, lab values and toxicology reports.
[2019-11-16] MEDS: CARBAMAZEPINE 200 MG TAB PO SCH (21:50)
[2019-11-17] VITALS (24 sets, daily range): BP systolic 67–160; BP diastolic 45–75
--- NOTE | 2019-11-17 00:54 | Progress Note ---
DATE: 11/16/2019 Medicine Progress Note SUBJECTIVE: The patient was in the process of being extubated this morning by Pulmonary Critical Care. She was alert, awake on examination. She was weaned off sedation. Discussed plan of care with at bedside. Neurology was consulted for history of seizure management as well as management of her antiseizure medications. LABORATORY FINDINGS: Show white count 10.6, hemoglobin 12.6, hematocrit 37, platelets of 206. Chemistry, sodium 141, potassium 3, chloride 108, bicarb 23, anion gap of 13, BUN is 10, creatinine is 0.6, glucose 89. Calcium is 8, phosphorus 3.4, magnesium 1.5. LFTs within normal range. Troponins were negative. BNP 116. Albumin is 2.8. Blood cultures, no growth to date. IMAGING STUDIES: Chest x-ray this morning shows low lung volumes, bibasilar atelectasis with improved aerial edema. PHYSICAL EXAMINATION: VITAL SIGNS: Temperature is 100.8, pulse 69, respiratory rate is 20, blood pressure is 147/76. She is 100% on nasal cannula 2 L. GENERAL: In no acute distress. Alert and oriented. She is intubated still. HEENT: Head is normocephalic and atraumatic. Eyes; pupils are equal, round, and reactive to light bilaterally. Extraocular movements are intact bilaterally. Throat, no evidence of erythema or exudates in the posterior pharynx. Has poor dentition. NECK: Supple. Good range of motion. PULMONARY: She was intubated, sedated, but alert and awake on examination CARDIOVASCULAR: Positive S1 and S2. No murmurs, rubs, or gallops appreciated. ABDOMEN: Soft, nondistended, and nontender to palpation. Bowel sounds present. MUSCULOSKELETAL: Strength is 5/5 throughout. No evidence of any muscle deficits on examination. No weakness appreciated. NEUROLOGIC: Intubated and sedated. SKIN: Intact. Warm to touch. Good cap refill. PSYCHIATRIC: We will defer to Psychiatry. EXTREMITIES: No lower extremity edema appreciated. IMPRESSION: 1. Acute respiratory failure, secondary to drug overdose on a mechanical ventilator in the process of being extubated. 2. Suicide attempt with drug overdose, with history of suicide attempt. 3. Aspiration pneumonia with fever. 4. History of seizures. 5. History of type 2 diabetes. 6. Hypertension. PLAN: At this time, the patient will likely be extubated later this morning by Pulmonary Critical Care. She is doing tremendously well. Chest x-ray reviewed. We will have a sitter at bedside and Psychiatry will be consulted. Continue and restart oral antiseizure medications once the patient is extubated. Continue with IV antibiotics and monitor cultures. The patient continues to have low-grade fever; insulin sliding scale, Accu-Cheks, A1c. Resume same antihypertensive Medications. Monitor very closely. Lovenox for DVT prophylaxis. CONSULTANTS INVOLVED: Pulmonary Critical Care, Neurology, and Psychiatry. The patient will continue to be in ICU and we will continue to follow very closely. MD SHANITA Marx/CELESTE /[id number]
[2019-11-17] MEDS: WATER STERILE FOR IRRIG 1000 ML PLCT IR SCH ×3 (02:00→10:00)
[2019-11-17 05:07] LABS: BASOPHILS % 0.4 % (0.0-1.0); EOSINOPHILS % 0.2 % (0.0-6.0); HEMATOCRIT 34.3 % (34.2-44.1); HEMOGLOBIN 11.3 g/dL (12.0-16.0); LYMPHOCYTES # (AUTO) 2.5 (1.0-3.2); LYMPHOCYTES % 25.9 % (18.0-39.1); MEAN CORPUSCULAR HEMOGLOBIN 32.2 pg (28-32); MEAN CORPUSCULAR HGB CONC 32.9 g/dL (31-35); MEAN CORPUSCULAR VOLUME 97.7 fL (81-99); NEUTROPHILS % 63.1 % (38.7-80.0); PLATELET COUNT 173 x10e3/uL (140-360); RED BLOOD COUNT 3.51 x10e6/uL (3.6-5.1); RED CELL DISTRIBUTION WIDTH 12.3 % (11.7-14.4)
[2019-11-17 05:34] LABS: ANION GAP 10.3 mmol/L (8-16); BLOOD UREA NITROGEN 9 mg/dL (7-26); BUN/CREATININE RATIO 14 (6-25); CALCIUM 7.8 mg/dL (8.4-10.2); CARBON DIOXIDE 23 mmol/L (22-29); CHLORIDE 112 mmol/L (98-107); CREATININE, SERUM 0.63 mg/dL (0.57-1.11); EST GLOMERULAR FILTRATION RATE > 60 ML/MIN (60-); GLUCOSE 176 mg/dL (74-118); POTASSIUM 3.3 mmol/L (3.5-5.1); SODIUM 142 mmol/L (136-145)
[2019-11-17] MEDS: PIPER-TAZ 3.375 GM 50 ML IV SCH ×3 (06:54→22:09)
[2019-11-17] MEDS: INSULIN REGULAR, HUMAN 100 UNIT/1 ML 3ML VIAL SQ SCH ×4 (07:30→21:18)
[2019-11-17] MEDS: SODIUM CHLORIDE 0.9% 1000ML 1,000 ML IV SCH ×3 (07:55→22:09)
--- NOTE | 2019-11-17 08:20 | Consultation ---
DATE OF CONSULTATION: 11/16/2019 Psychiatric Consultation REASON FOR CONSULTATION: To evaluate the patient's suicide attempt. HISTORY OF PRESENT ILLNESS: The patient is a 53-year-old female admitted to the hospital for multiple drug overdose, respiratory failure and suicide attempt. Psychiatric consultation is called to evaluate patient's mood and suicide attempt. As per the medical record, the patient has history of obesity, diabetes 2, seizure, hypertension, and depression. She attempted suicide by taking approximately 78 tablets of propranolol at home and possibly some other pain medications with unknown amount. The patient was taken to the hospital by family members and was intubated in the ER. The patient was then placed in the ICU. Upon evaluation today, patient is found to be in the ICU. She is in restraints. She is alert and intubated. She is able to answer question by nodding or shaking her head. She admits to feeling depressed, but no longer having suicidal or homicidal ideation. She denies any hallucination. She is agitated, trying to at the lines. Most of the information is provided from the . Collaborative report from the , who is a police dispatcher. He reports that the patient wrote suicide note about 10 years ago. She has been feeling very depressed due to her health and also missing her parents, who when she was in her teen. Due to the stressors, family members believe that she attempted suicide, the daughter found her lethargic and bottles of medication were opened by the bedside, they were able to somewhat arouse her and took her to the hospital. The patient does not have a psychiatrist outside. 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 states that she has been preoccupied with end of times thus. PAST PSYCHIATRIC HISTORY: The patient has attempted suicide one time in the past, but she has never been diagnosed with depression. She does not drink alcohol or use any drugs. FAMILY HISTORY: None. SOCIAL HISTORY: The patient lives with her and daughter. MENTAL STATUS EXAM: The patient is middle aged female. She is to alert and awake, oriented to time, place and situation. She is intubated, unable to provide information. She denies suicidal or homicidal ideation. She is restless at this time. Speech is unable to assess. CURRENT MEDICATIONS: 1. Piperacillin/tazobactam. 2. Sodium chloride. 3. Tegretol. 4. Keppra. 5. Acetaminophen. 6. Enoxaparin. 7. Insulin. 8. Vimpat, which is a home medication. 9. Dextrose. 10. Hydralazine. 11. Ondansetron. CURRENT LABS: WBC 9.48, RBC 3.51, hemoglobin 11.3, hematocrit 34.3, platelets 173. Sodium 142, potassium 3.3, chloride 112, CO2 of 23, BUN 9, creatinine 0.63. ASSESSMENT: Major depressive disorder, recurrent, severe. PLAN: 1. Add Haldol 2 mg IM q.6 hours p.r.n. for severe agitation. 2. Add Ativan 0.5 mg IM q.6 hours p.r.n. for severe anxiety. 3. Discussed with family members. They agree with inpatient psychiatry at this time. 4. Recommend inpatient psychiatry once the patient is medically cleared. Thank you for this consultation. Dictated by Pratibha Fallon PA-C Eder Reina MD QTV/MODL /[id number]
[2019-11-17] MEDS: LEVETIRACETAM 500MG/5ML VIAL 1,000 MG in SODIUM CHLORIDE 0.9% 100 ML 100 ML IV SCH (08:27)
[2019-11-17] MEDS: CARBAMAZEPINE 200 MG TAB PO SCH ×3 (08:27→21:17)
[2019-11-17] MEDS: VIMPAT 200 MG PO SCH ×3 (08:27→21:17)
--- NOTE | 2019-11-17 09:03 | NUR ---
Called and spoke with pt's to verify medication. He reports Levetiracetam 2000mg PO Q12 hr.
[2019-11-17] MEDS ORDERED: POTASSIUM CHLORIDE 20MEQ/100ML 200 ML IV ONE (10:15)
--- NOTE | 2019-11-17 10:31 | NUR ---
Called and spoke with Dr Yao. Obtained approval for Keppra 2000mg IV Q12 hr. Have notified the pharmacist.
[2019-11-17] MEDS ORDERED: LEVETIRACETAM 500MG/5ML VIAL 1,000 MG in SODIUM CHLORIDE 0.9% 100 ML 100 ML IV ONE (10:40)
--- NOTE | 2019-11-17 11:45 | NUR ---
Dr Milan ordered for pt to take her AM PO medications at this time in applesauce with nurse assist and observation. Pt has tolerated without any coughing or complaint. Pt and spouse at bedside agreed to this plan.
--- NOTE | 2019-11-17 11:46 | NUR ---
Pulmonary Critical Care Medicine DATE 11/17/2019 SUBJECTIVE: patient extubated yesterday 101 F yesterday evening, multiple low grade temps IVF 125/hr NS RA fio2 now, 100% REVIEW OF SYSTEMS: Cannot get as the patient is intubated. OBJECTIVE: VITAL SIGNS: Reviewed per the chart record. GENERAL: Awake on ventilator, intubated. HEENT: Normocephalic, atraumatic. NECK: Supple. Throat midline. LUNGS: Bilateral air entry, moderate rhonchi bilaterally CARDIOVASCULAR: S1, S2. No murmurs, rubs, or gallops. ABDOMEN: Soft, nontender. EXTREMITIES: No clubbing, no cyanosis. no edema. INTEGUMENT: No rash or purpura. LABORATORY DATA: k 3.3, hco3 23, cr 0.62, wbc 9.5, hct 34, plt 173 IMPRESSION AND PLAN: 1. Acute respiratory failure, intubated/extubated 2. Encephalopathy, Toxic/metabolic. resolved 3. Aspiration pneumonitis. 5. Hx epilepsy, cavernous malformation 6. Hypertension. 7. Diabetes. 8. Depression. 9. Suicide attempt. ~78 propanolol, few tramadol 10. dysphagia/dysphonia extubated. dc ventilator support. clinical dysphagia present, check BSE/MBS today deliver critical seizure medications encourage expectoration Decrease then d/c IV fluids soon. Psychiatry follow up d/c gianfranco Thank you very much, Dr. Pelaez, for this consult. Please call for questions.
--- NOTE | 2019-11-17 12:05 | NUR ---
Order for another 20 meq KCL IV was verified that the total dose for today will be 60meq KCL IV per Dr Milan.
[2019-11-17] MEDS ORDERED: POTASSIUM CHLORIDE 20MEQ/100ML 100 ML IV ONE (14:00)
--- NOTE | 2019-11-17 16:10 | Diagnostic Imaging Report ---
EXAM: MODIFIED BA. SWALLOW DATE: 11/17/2019 10:51 AM INDICATION: Dysphagia COMPARISON: None Fluoroscopy Time: 2.4 min. Reference Air Kerma (Ka, r): 8.53 mGy. FINDINGS/IMPRESSION: Modified barium swallow was performed by the speech therapist. The radiologist was not present for the examination. Please refer to speech pathology report for further details. Signed by: Dr. Rohith Foster MD on 11/17/2019 4:07 PM
[2019-11-17] MEDS: ENOXAPARIN SOD INJ 40 MG/0.4 ML SYR SC SCH (17:11)
--- NOTE | 2019-11-17 19:00 | NUR ---
Bedside received from Twyla Nava RN. Pt received resting in bed with eyes open, pt AAOx4 and following commands. Pt reports no physical pain at this time and no signs of respiratory distress noted - pt on room air, rr 18, spo2 97%. Call light in reach of the pt, bed in lowest and locked position, continuous bedside ECG monitoring.
--- NOTE | 2019-11-17 19:13 | Progress Note ---
DATE: 11/17/2019 A 53-year-old female. CONSULTANTS: 1. Dr. Milan with chief engineer research. 2. Dr. Reina with psychiatrically. 3. Dr. Wilkinson with ENT. CHIEF COMPLAINT: Overdose due to suicidal attempt. SUBJECTIVE: The patient is seen in the ICU with complaints of nausea and cough. She reports feeling better, extubated yesterday. Still has episodes of bradycardia. Denies any chest pain, abdominal pain, shortness of breath. PHYSICAL EXAMINATION: VITAL SIGNS: Temperature 99.8, pulse 66, respirations 18, blood pressure 144/56, pulse ox is 98% on room air. GENERAL: No acute distress. HEENT: Normocephalic, atraumatic. NECK: Supple. CARDIOVASCULAR: Regular rate and rhythm with episodes of bradycardia LUNGS: Decreased breath sounds. ABDOMEN: Soft and nontender, obese. NEUROLOGIC: Alert, awake, and oriented x3. MUSCULOSKELETAL: Moves all extremities. SKIN: Dry. PSYCH: Depressed. LABORATORY DATA: WBC 9.48, hemoglobin 11.3, hematocrit 34.3, platelets 173. Sodium 142, potassium 3.3, chloride 112, creatinine 0.63, estimated GFR is greater than 60, calcium 7.8. BNP 116. IMAGING: Modified barium swallowing test was negative for aspiration. IMPRESSION: 1. Aspiration pneumonia with fever. Continue on IV antibiotics, neb treatments. 2. Suicide attempt with overdose of several medications, Propanol and tramadol. Psych is consulted recommending Inpatient Psych once medically stable. 3. Seizure disorder. We will continue with seizure medications. 4. Dysphagia. Speech therapist has done modified barium swallow. Recommending soft diet. We will continue with that. 5. Hypertension. Blood pressure is stable. We will continue current treatment. 6. Diabetes. Continue sliding scale insulin. 7. Deep venous thrombosis prophylaxis. Continue Lovenox. PLAN: To continue tele monitor. We will discontinue Pineda catheter and continue to monitor in the ICU. Dictated by MADDIE Orr Alison Mcfarland MD MY/MODL /[id number] Seen and examined on 11/17/19. Agree with the findings and plan as documented by MADDIE Perez. BIANCA
--- NOTE | 2019-11-17 19:15 | NUR ---
Dr. Wilkinson present and assessing the pt.
--- NOTE | 2019-11-17 19:48 | Diagnostic Imaging Report ---
EXAMINATION: Head CT HISTORY: Multiple drug overdose, evaluate "capillary angioma" COMPARISON: None available. TECHNIQUE: Multidetector axial images were obtained without contrast from the foramen magnum to the vertex . The images were reconstructed using brain and bone algorithms. Thin section brain images were reformatted into coronal and sagittal planes. Image quality: Motion/streaking artifact limits the evaluation of the skull base and posterior cranial fossa. Dose modulation, iterative reconstruction, and/or weight based adjustment of the mA/kV was utilized to reduce the radiation dose to as low as reasonably achievable. FINDINGS: Parenchyma: 1. Heterogeneous density approximately 1.9 cm diameter lesion in the right inferior and posterior frontal/subfrontal region, inferior and lateral to the head of the caudate nucleus, with a prominent central calcification and partial peripheral calcification as well as a possible fluid/cystic component along the posterolateral margin. No associated surrounding vasogenic edema or mass effect. This may represent a cavernous malformation, the sequela from remote infections such as neurocysticercosis or perhaps a low-grade neoplasm. 2. Otherwise no discrete mass or hemorrhage. No CT evidence of acute territorial vascular insult. Extra-axial spaces:No abnormal density. No extra-axial fluid collections Brain volume: Normal for age. Ventricles: No hydrocephalus or displacement. Arteries: No density suggestive of thrombus. Dural sinuses: No abnormal density. Foramen magnum: No mass, Chiari malformation, or basilar invagination. Sella: No obvious mass. Paranasal/mastoid sinuses: Imaged portions unremarkable. Skull/Scalp: No lytic or blastic lesions. No fractures. IMPRESSION: 1. No acute intracranial abnormalities. 2. Heterogeneous density partially calcified lesion in the right subfrontal region as detailed above, comparison to prior studies to determine stability is recommended, if not previously evaluated a nonemergent brain MRI without and with contrast is advised. Signed by: Dr. Rima Wells M.D. on 11/17/2019 7:46 PM
[2019-11-17] MEDS: LEVETIRACETAM 500MG/5ML VIAL 2,000 MG in SODIUM CHLORIDE 0.9% 100 ML 100 ML IV SCH (21:17)
[2019-11-17] MEDS: FAMOTIDINE 20 MG TAB PO SCH (21:17)
[2019-11-18] VITALS (16 sets, daily range): BP systolic 140–196; BP diastolic 66–89
--- NOTE | 2019-11-18 00:48 | Consultation ---
DATE OF CONSULTATION: 11/17/2019 Hospital Consultation HISTORY OF PRESENT ILLNESS: I was kindly asked to see this 53-year-old woman for evaluation of difficulty swallowing. The patient was admitted with a multidrug overdose and respiratory failure, which necessitated intubation and ventilator support. Prior to her intubation, she had no problems with her swallowing or her voice. The intubation was "difficult" and the patient awoke and was immediately hoarseness and difficulty swallowing. She chokes on clear liquids. Subsequent modified barium swallow did not show aspiration. Her history of present illness, past medical history and past surgical history were all reviewed in detail in the chart and are long and complicated with multiple comorbidities. On examination, there is moderate cerumen in the external auditory canals bilaterally. The visualized portion of the tympanic membranes are unremarkable. Intranasal examination shows normal nasal mucosa. There is a nasal septal deviation to the left. She has mild candidiasis on the dorsum of the tongue. There is symmetric elevation of the soft palate. There is no abnormalities noted on the posterior pharyngeal wall. There is no palpable cervical adenopathy. A bedside fiberoptic laryngoscopy shows normal vocal cord motion. There are no masses. There is edema and erythema of the posterior commissure of the larynx with inadequate glottic closure. There was laceration along the posterior commissure contributing to the edema and erythema, which also contributes to the inadequate glottic closure. There were no mass lesions noted. She has intact supraglottic laryngeal sensation. ASSESSMENT: 1. Dysphagia secondary to a combination of a laceration of the posterior commissure of the larynx and laryngopharyngeal reflux. 2. Hoarseness also secondary to the above. PLAN: 1. Protonix 40 mg a day and Pepcid 40 mg at bedtime. 2. I have recommended thickened liquids and soft diet. Jesu Wilkinson MD LRReji/MODL /[id number]
--- NOTE | 2019-11-18 00:48 | Consultation ---
DATE OF CONSULTATION: Neurology Consultation HISTORY OF PRESENT ILLNESS: Ms. Suni Jensen is a 53-year-old female, right-handed, who comes to my attention for overdose. She has history of seizures and capillary hemangioma, intractable, going back since she was about age 18. She had a long history of intractable seizures, on multiple medications including 2000 mg of Keppra IV b.i.d., Vimpat, lorazepam, and carbamazepine. Despite this, she has at least one seizure with them and she has as many as 20 seizures per day. She states she was depressed and attempted suicide for which she was in the hospital, but seems to be at this point doing better overall. However, I will assess the patient for the seizures. REVIEW OF SYSTEMS: Drug overdose, but otherwise 14-review of systems is negative other than depression. ALLERGIES: SHE IS ALLERGIC TO TOPIRAMATE. HOME MEDICATIONS: Include Depakote, carbamazepine, and Keppra. PAST MEDICAL HISTORY: History of hypertension, seizures, capillary hemangioma, and depression. SOCIAL HISTORY: . No history of drugs, alcohol, or tobacco. IMAGING STUDIES: No neurological imaging is done. We are going to get a CT of the brain. PHYSICAL EXAMINATION: VITAL SIGNS: Temperature is 97.2, pulse is 58. Her blood pressure is 114/66. HEENT: Extraocular muscles are intact. Face is symmetric. Tongue is midline. Speech is clear. No nuchal rigidity. CARDIOVASCULAR: Regular rate and rhythm. PULMONARY: Clear to auscultation. ABDOMEN: Soft, nontender. NEUROLOGIC: Reflexes are 1/4. No ataxia on exam. ASSESSMENT AND PLAN: I am seeing the patient for uncontrolled epileptogenicity. Discussed new antiepileptic medication. The patient to continue current medication therapy. Discussed vagal nerve stimulator and laser therapy for the capillary hemangioma as options going forward. We will follow the patient as outpatient and continue neurophysiological intervention as needed there. No need for an MRI at this time or EEG, but a CT scan might be helpful just to determine location of this lesion in her brain. We will see the patient as an outpatient once discharged. In the meantime, continue current antiepileptic therapy. ARTIE MANCERA MD RR/MODL /[id number]
[2019-11-18] MEDS: ACETAMINOPHEN 325 MG TAB PO PRN ×2 (01:37→18:21)
--- NOTE | 2019-11-18 01:45 | NUR ---
Pt uncomfortable in the bed. Pt assisted to bedside recliner.
[2019-11-18 05:29] LABS: ANION GAP 10.4 mmol/L (8-16); BLOOD UREA NITROGEN 6 mg/dL (7-26); BUN/CREATININE RATIO 10 (6-25); CALCIUM 8.4 mg/dL (8.4-10.2); CARBON DIOXIDE 23 mmol/L (22-29); CHLORIDE 111 mmol/L (98-107); CREATININE, SERUM 0.58 mg/dL (0.57-1.11); EST GLOMERULAR FILTRATION RATE > 60 ML/MIN (60-); GLUCOSE 171 mg/dL (74-118); MAGNESIUM 1.7 MG/DL (1.3-2.1); POTASSIUM 3.4 mmol/L (3.5-5.1); SODIUM 141 mmol/L (136-145)
[2019-11-18] MEDS: PIPER-TAZ 3.375 GM 50 ML IV SCH ×3 (05:58→22:40)
--- NOTE | 2019-11-18 07:06 | Diagnostic Imaging Report ---
EXAMINATION: CHEST SINGLE (PORTABLE) COMPARISON: Chest x-ray 11/16/2019 INDICATION: Post extubation ^aspiration ^[id number] ^0510 DISCUSSION: Frontal view of the chest obtained at 0613 hours. HEART AND MEDIASTINUM: The heart is mildly enlarged, stable. Pulmonary arteries are prominent and stable in morphology. Pulmonary vasculature is indistinct but stable. LINES: Endotracheal tube and enteric tube have been removed. LUNGS: Low lung volumes. No significant change in bibasilar atelectasis. PLEURA: No pleural effusion or pneumothorax. BONES AND SOFT TISSUES: No focal osseous lesion. The soft tissues are normal. IMPRESSION: Stable bibasilar atelectasis. Stable cardiomegaly, vascular congestion, and prominent pulmonary arteries suggestive of pulmonary artery hypertension. Signed by: Dr. Raquel Pruett MD on 11/18/2019 7:03 AM
[2019-11-18] MEDS: INSULIN REGULAR, HUMAN 100 UNIT/1 ML 3ML VIAL SQ SCH ×4 (07:56→21:26)
[2019-11-18] MEDS: PANTOPRAZOLE SOD 40 MG TABEC PO SCH (07:59)
[2019-11-18] MEDS: VENLAFAXINE HCL 37.5MG XR CAP PO SCH (08:06)
[2019-11-18] MEDS: CARBAMAZEPINE 200 MG TAB PO SCH ×2 (08:07→21:16)
[2019-11-18] MEDS: VIMPAT 200 MG PO SCH ×2 (08:07→17:57)
--- NOTE | 2019-11-18 08:39 | NUR ---
SPOKE WITH COMPLEX CARE NURSE FOR PSYCH, SHE STATES WHEN PT IS MEDICALLY CLEARED, DR Montano WILL ACCEPT HER AT [facility]. WILL BEGIN TRANSFER PROCESS WHEN GET MEDICAL CLEARANCE.
--- NOTE | 2019-11-18 08:46 | NUR ---
s: no overnight seizures reported vs 98.4 61 17 162/77 aox3 no nuchal rigidity calm rrr cta abd soft eomi perrl face symmetric, speech clear and coherent motor 5/5 no tremor reflexes 1/4 no ataxia ap- seizure disorder - 2/2 cavernous malformation in inferior-orbial region consider laser vs jolene knife to ablate lesion, or if not a candidate as outpt can adjust aed or consider VNS discussed w/ patient no acute neuro changes at this time conintune current aed medicaiton and outtp follow up w/ pcp neuro
[2019-11-18] MEDS: LEVETIRACETAM 500MG/5ML VIAL 2,000 MG in SODIUM CHLORIDE 0.9% 100 ML 100 ML IV SCH ×2 (08:54→21:10)
--- NOTE | 2019-11-18 09:27 | NUR ---
ST NOTE: Attempted to see pt at 9:20 to initiate dysphagia therapy with NMES. Pt in need of catheterization per nursing, will return today if time permits. Handoff to LORY Solis
--- NOTE | 2019-11-18 09:30 | NUR ---
Medel placed with inability to urinate s/p medel cath removal. 500cc dark yellow urine immediately returned. No complications noted. Pt c/o difficulty voiding for last couple months.
--- NOTE | 2019-11-18 09:40 | Progress Note ---
DATE: 11/17/2019 Psychiatric Progress Note SUBJECTIVE: The patient evaluated and events noted. The patient is in the room. She has been extubated. She is alert, awake, and oriented to situation. She admits to feeling depressed. She denies any suicidal ideation. She denies any hallucination. She denies any problem with appetite. reports the patient has been sleeping a lot due to her medication that she is on. The patient agrees to inpatient psychiatry at this time. Discussed with Case Management. ASSESSMENT: Major depressive disorder, recurrent. PLAN: 1. Continue with p.r.n. Haldol and Ativan IM. 2. Effexor XR 37.5 mg p.o. daily. 3. Supportive therapy. 4. Monitor for mood. 5. Recommend inpatient Psychiatry once medically cleared. Dictated by Pratibha Fallon PA-C MD ANA CRISTINA ColinV/CELESTE /[id number]
[2019-11-18] MEDS ORDERED: POTASSIUM CHLORIDE 10MEQ EA PO ONE (09:45)
--- NOTE | 2019-11-18 10:30 | NUR ---
Left femoral central line discontinued by Reji Garcia RN. Cath tip intact, site clean, pressure held, no hematoma, bandaged with 2x2 and transparent dressing. No complications noted.
--- NOTE | 2019-11-18 12:04 | Progress Note ---
DATE: 11/18/2019 CONSULTANTS: 1. Dr. Milan with hub lead. 2. Dr. Reina with Psychiatry. 3. Dr. Wilkinson with ENT. 4. Dr. Leonard with Neurology. CHIEF COMPLAINT: Overdose due to suicidal attempt. SUBJECTIVE: The patient remains in ICU. She was still noted to have episodes of bradycardia. She denies any chest pain, shortness of breath, change in LOC. Pineda was removed last night, but is noted to be retaining urine, so Pineda reinserted. PHYSICAL EXAMINATION: VITAL SIGNS: Temperature 98.4, pulse is 60, respirations 19, blood pressure 163/73, pulse ox is 99% on room air. GENERAL: Fatigue. HEENT: Normocephalic, atraumatic. NECK: Supple. CARDIOVASCULAR: Regular rate and rhythm with episodes of bradycardia. LUNGS: Decreased breath sounds. ABDOMEN: Soft and nontender, obese. NEUROLOGIC: Alert, awake, and oriented x3. MUSCULOSKELETAL: Moves all extremities. SKIN: Dry. PSYCH: Depressed. LABORATORY DATA: Sodium 141, potassium 3.4, chloride 111, BUN is 6, creatinine 0.58. Estimated GFR greater than 60. Glucose 171, calcium 8.4, magnesium 1.7. IMPRESSION: 1. Aspiration pneumonia with fever. Continue IV antibiotics and treatment. 2. Suicide attempt with overdose of poly drugs. Propranolol and tramadol. Psych has been consulted and recommends inpatient psych once medically cleared. 3. Seizure disorder. We will continue on Keppra. Neurology is on the case. 4. Dysphagia. She passed barium swallowing test. Scope by ENT revealed laceration of the posterior commissure of the larynx and laryngeal pharynx, laryngopharyngeal reflux and hoarseness also secondary to it. We will continue with PPI and full liquid diet. 5. Hypertension. Blood pressure is stable. We will treat as needed with hydralazine. 6. Diabetes. Continue sliding scale insulin. 7. Severe depression. Defer to Psych. 8. Deep vein thrombosis prophylaxis. Continue Lovenox. PLAN: Continue tele monitor. We will reinsert Pineda catheter for urinary retention. Dictated by MADDIE Orr Ishaching Alexy Mcfarland MD MY/MODL /[id number] Seen and examined. Agree with the findings and plan as documented by MADDIE Perez. BIANCA
--- NOTE | 2019-11-18 12:35 | NUR ---
Pulmonary Critical Care Medicine DATE 11/18/2019 SUBJECTIVE: k low, repleted ENT laceration in posterior commisure fissure reported, but patient able to start diet some bradycardias at least 3 episodes noted with some 2nd degree heart block (type I ? more likely than type II, but not clear on short segments and not consistently recurring. ) medel replaced due to inability to void REVIEW OF SYSTEMS: no headaches, no rash OBJECTIVE: VITAL SIGNS: Reviewed per the chart record. GENERAL: Awake on ventilator, intubated. HEENT: Normocephalic, atraumatic. NECK: Supple. Throat midline. LUNGS: Bilateral air entry, moderate rhonchi bilaterally CARDIOVASCULAR: S1, S2. No murmurs, rubs, or gallops. ABDOMEN: Soft, nontender. EXTREMITIES: No clubbing, no cyanosis. no edema. INTEGUMENT: No rash or purpura. LABORATORY DATA: k 3.3, hco3 23, cr 0.62, wbc 9.5, hct 34, plt 173 IMPRESSION AND PLAN: 1. Acute respiratory failure, intubated/extubated 2. Encephalopathy, Toxic/metabolic. resolved 3. Aspiration pneumonitis. 5. Hx epilepsy, cavernous malformation 6. Hypertension. 7. Diabetes. 8. Depression. 9. Suicide attempt. ~78 propanolol, few tramadol 10. dysphagia/dysphonia 11. urinary retention 12. bradycardias, 2nd degree heart block modified diet, per speech therapy deliver critical seizure medications encourage expectoration psychiatry follow up replaced medel, consider removal later fix k Thank you very much, Dr. Mcfarland, for this consult. Please call for questions.
--- NOTE | 2019-11-18 13:19 | NUR ---
Called and spoke with Narciso at Dr Bueno's office to notify of the new cardiology consult.
--- NOTE | 2019-11-18 14:21 | NUR ---
Consult for Dr Walker called to physician's office.
[2019-11-18] MEDS: HYDRALAZINE HCL 20 MG/ML VIAL IV PRN ×2 (15:43→21:06)
[2019-11-18] MEDS: ENOXAPARIN SOD INJ 40 MG/0.4 ML SYR SC SCH (17:57)
[2019-11-18 18:46] LABS: CLARITY,URINE CLEAR (CLEAR); COLOR,URINE YELLOW (YELLOW)
[2019-11-18 18:47] LABS: LEUKOCYTE ESTERASE ,URINE NEGATIVE (NEGATIVE); NITRITE,URINE NEGATIVE (NEGATIVE); PROTEIN,URINE DIPSTICK NEGATIVE (NEGATIVE)
[2019-11-18 18:50] LABS: KETONES,URINE NEGATIVE (NEGATIVE); URINE UROBILINOGEN 0.2 mg/dL (0.2 - 1)
[2019-11-18 18:51] LABS: BILIRUBIN,URINE NEGATIVE (NEGATIVE)
[2019-11-18 19:00] LABS: BACTERIA,URINE FEW /HPF; EPITHELIAL CELLS,URINE FEW /LPF; WBC,URINE (MAN) 0-5 /HPF (0-5)
--- NOTE | 2019-11-18 19:00 | NUR ---
Bedside report received from Twyla Nava RN. Care plan reviewed. Pts at the bedside. Alejandra PCT at bedside at 1:1 sitter.
--- NOTE | 2019-11-18 19:40 | NUR ---
Pt being transferred to room 100. Report called to Kaylin HENLEY.
--- NOTE | 2019-11-18 21:00 | NUR ---
RECEIVED PATIENT TRANSFER FROM ICU VIA WHEELCHAIR. AMBULATED TO BED, STEADY, SLOW GAIT NOTED. PATIENT A&OX4. NO PAIN REPORTED. LUNG SOUNDS CLEAR. BOWEL SOUNDS ACTIVE. LAST BM YESTERDAY, 11/17. PEDAL PULSES PALPABLE. TSAI DRAINING TO GRAVITY, SECURED WITH STAT LOCK TO R THIGH, BAG HANGING OFF FLOOR, CLEAR YELLOW URINE NOTED. NO S&S OF DISTRESS NOTED. SUICIDE RISK ASSESSMENT AND CARE PLAN TOOL AND ENVIRONMENTAL RISK ASSESSMENT TOOL COMPLETED WITH MT, PCT, WHO IS PATIENT'S 1:1 SITTER FOR THE SHIFT. PATIENT REPORTS NO SUICIDALITY, ONLY DEPRESSIVE FEELINGS, OPEN TO RECEIVING TREATMENT WHEN MEDICAL CONDITIONS ARE CLEARED. WILL CONTINUE TO MONITOR PATIENT CLOSELY.
[2019-11-18] MEDS ORDERED: SODIUM CHLORIDE 0.9% 250ML 250 ML ONE (21:01)
[2019-11-18] MEDS: FAMOTIDINE 20 MG TAB PO SCH (21:16)
--- NOTE | 2019-11-18 22:50 | NUR ---
PATIENT'S VISITED TO BRING PERSONAL PILLOWS, AND LAID PATIENT DOWN IN THE BED. SOON AFTER, PATIENT STARTED FEELING VERY CONGESTED AND COUGHING PROFUSELY. SAT PATIENT BACK UP WHICH HELPED. PER PATIENT REQUEST, MOVED HER TO LOCKED RECLINER. PATIENT REPORTS SHE HAS BEEN BREATHING MUCH EASIER WITH LITTLE COUGHING SINCE SITTING IN CHAIR AND REQUESTS TO STAY IN CHAIR FOR THE NIGHT. SITTER AT BEDSIDE. CALL LIGHT IN REACH.
[2019-11-19] VITALS (8 sets, daily range): BP systolic 156–192; BP diastolic 69–105
--- NOTE | 2019-11-19 03:09 | Consultation ---
DATE OF CONSULTATION: 11/18/2019 Cardiac Consultation REASON FOR CONSULTATION: Dropped heart beat, bradycardia. HISTORY OF PRESENT ILLNESS: This is a 53-year-old lady, who is morbidly obese, diabetic with seizure, on anti-seizure medication; hypertension, history of depression and cluster headache. The patient came to this institution on November 15, 2019 when the patient committed suicide. She came to this institution. She was intubated, placed on ventilator, subsequently extubated. It was noted she will have Wenckebach and dropped heart beat. Also, episodes of bradycardia with no advanced heart block on telemetry. I reviewed them all. Cardiac consultation is obtained. Of note, her TSH is normal. I visited the patient, her at bedside. She denied having any cardiac symptoms. She is having quite a lot of headache recently as well as her seizure. She is on multiple seizure medication. She is followed by her neurologist. REVIEW OF SYSTEMS: GENERAL: No fever, no chills HEENT: No vision problem. No hearing problem. Cluster headaches of recent onset in the last few months. PULMONARY: Easy fatigability, shortness of breath on exertion. No orthopnea. No paroxysmal nocturnal dyspnea, possible sleep apnea. CARDIAC: No angina. No orthopnea. No paroxysmal nocturnal dyspnea. Sleep apnea. Minimal leg swelling. Occasional cough. GI: No hematemesis. No melena. : No hematuria. No dysuria. MUSCULOSKELETAL: Aches and pain. NEUROLOGIC: Seizure activity. ALLERGIES: TOPIRAMATE. HOME MEDICATIONS: 1. Tegretol 400 mg twice a day. 2. Vimpat 200 mg twice a day. 3. Keppra. 4. Ativan. 5. Lasix 40 mg a day. 6. Lisinopril 10 mg a day. 7. Propranolol 100 mg a day. 8. Insulin. ALLERGIES: TOPIRAMATE. PAST MEDICAL HISTORY: 1. Hypertension. 2. Diabetes mellitus. 3. Seizure activity for 35 years. 4. Cluster headache. 5. Obesity. SOCIAL HISTORY: She is . She is nonsmoker, non-alcohol drinker. FAMILY HISTORY: No family history of premature coronary artery disease. PHYSICAL EXAMINATION: VITAL SIGNS: Height of 5 feet 1 inch, weight of 278 pounds, blood pressure 140/80, heart rate of 60, respiratory rate of 18, afebrile. HEENT: Pupils are reactive. NECK: No elevation of jugular venous pulsation. CHEST: Clear to auscultation and percussion. HEART: PMI in 5th left intercostal space. Normal first and second heart sound. ABDOMEN: Soft with good bowel sounds. No organomegaly. No abdominal bruits. EXTREMITIES: No cyanosis, no clubbing, no edema. No signs of deep venous thrombosis. IMPRESSION AND PLAN: 1. Suicidal attempt with acute respiratory failure. The patient already extubated. 2. History of seizures. 3. Hypertension. 4. Diabetes mellitus. 5. Cluster headache. 6. Obesity. 7. Bradycardia and Wenckebach by reviewing her telemetry. RECOMMENDATIONS: 1. Observation. We will check an echocardiogram avoiding any AV blocking agent, increasing activity. 2. We will follow the patient's progression with you and would like to thank you for your kind referral. LABORATORY DATA: Sodium of 141, potassium 3.4. BUN of 6, creatinine of 0.6, hemoglobin of 11.3, hematocrit 34%, white blood cell count of 9.5 thousand. EKG showing normal sinus rhythm with nonspecific ST changes. MD JAYESH Luong/SIMONL /[id number]
--- NOTE | 2019-11-19 04:31 | NUR ---
PATIENT REQUESTED BLOOD SUGAR CHECK SHE IS FEEL NAUSEATED. USING PATIENT'S BS SENSOR, NOTED TO BE 159. PROVIDED PRN NAUSEA MEDS. REMOVED R FA 20G IV D/T LEAKING. CATHETER TIP INTACT, PRESSURE DRESSING APPLIED.
[2019-11-19] MEDS: PIPER-TAZ 3.375 GM 50 ML IV SCH (06:01)
[2019-11-19 06:08] LABS: BASOPHILS % 0.7 % (0.0-1.0); EOSINOPHILS # (AUTO) 0.1 (0.0-0.4); EOSINOPHILS % 1.4 % (0.0-6.0); HEMATOCRIT 38.5 % (34.2-44.1); HEMOGLOBIN 12.5 g/dL (12.0-16.0); LYMPHOCYTES % 36.2 % (18.0-39.1); MEAN CORPUSCULAR HEMOGLOBIN 32.7 pg (28-32); MEAN CORPUSCULAR HGB CONC 32.5 g/dL (31-35); MEAN CORPUSCULAR VOLUME 100.8 fL (81-99); MONOCYTES # (AUTO) 0.5 (0.2-0.8); NEUTROPHILS % 52.8 % (38.7-80.0); PLATELET COUNT 185 x10e3/uL (140-360); RED BLOOD COUNT 3.82 x10e6/uL (3.6-5.1)
[2019-11-19 06:24] LABS: ANION GAP 12.6 mmol/L (8-16); BLOOD UREA NITROGEN < 5 mg/dL (7-26); CALCIUM 8.8 mg/dL (8.4-10.2); CARBON DIOXIDE 24 mmol/L (22-29); CHLORIDE 109 mmol/L (98-107); CREATININE, SERUM 0.55 mg/dL (0.57-1.11); EST GLOMERULAR FILTRATION RATE > 60 ML/MIN (60-); GLUCOSE 193 mg/dL (74-118); POTASSIUM 3.6 mmol/L (3.5-5.1); SODIUM 142 mmol/L (136-145)
[2019-11-19 06:29] LABS: BUN/CREATININE RATIO 9 (6-25)
--- NOTE | 2019-11-19 06:40 | NUR ---
RECEIVED BEDSIDE SHIFT REPORT FROM OFF GOING NURSE. PATIENT IS IN STABLE CONDITION, SITTING UP IN RECLINER. 1:1 SITTER AT BEDSIDE. CALL LIGHT WITHIN REACH. BED IN THE LOWEST POSITION.
[2019-11-19] MEDS: LEVETIRACETAM 500MG/5ML VIAL 2,000 MG in SODIUM CHLORIDE 0.9% 100 ML 100 ML IV SCH (08:26)
[2019-11-19] MEDS: PANTOPRAZOLE SOD 40 MG TABEC PO SCH (08:26)
[2019-11-19] MEDS: VENLAFAXINE HCL 37.5MG XR CAP PO SCH (08:27)
[2019-11-19] MEDS: CARBAMAZEPINE 200 MG TAB PO SCH ×2 (08:27→20:08)
[2019-11-19] MEDS: HYDRALAZINE HCL 20 MG/ML VIAL IV PRN (08:27)
[2019-11-19] MEDS: INSULIN REGULAR, HUMAN 100 UNIT/1 ML 3ML VIAL SQ SCH ×4 (08:30→20:10)
[2019-11-19] MEDS: VIMPAT 200 MG PO SCH ×2 (08:30→17:00)
--- NOTE | 2019-11-19 09:44 | NUR ---
s: no overnight seizures reported patient reports she is feeling depressed but no seizures vs 98. 77 148/62 aox3 no nuchal rigidity calm rrr cta abd soft eomi perrl face symmetric, speech clear and coherent motor 5/5 no tremor reflexes 1/4 no ataxia ap- seizure disorder - 2/2 cavernous malformation in inferior-orbial region consider laser vs jolene knife to ablate lesion, or if not a candidate as outpt can adjust aed or consider VNS discussed w/ patient no acute neuro changes at this time conintune current aed medicaiton and outtp follow up w/ pcp neuro
--- NOTE | 2019-11-19 10:15 | NUR ---
Pulmonary Critical Care Medicine DATE 11/19/2019 SUBJECTIVE: 1 l/min oxygen medel in place has appetite, but has early satiety REVIEW OF SYSTEMS: no headaches, no rash OBJECTIVE: VITAL SIGNS: Reviewed per the chart record. GENERAL: Awake on ventilator, intubated. HEENT: Normocephalic, atraumatic. NECK: Supple. Throat midline. LUNGS: Bilateral air entry, moderate rhonchi bilaterally CARDIOVASCULAR: S1, S2. No murmurs, rubs, or gallops. ABDOMEN: Soft, nontender. EXTREMITIES: No clubbing, no cyanosis, no edema. INTEGUMENT: No rash or purpura. LABORATORY DATA: k 3.6, hco3 24, cr 0.56 IMPRESSION AND PLAN: 1. Acute respiratory failure, intubated/extubated 2. Encephalopathy, Toxic/metabolic. resolved 3. Aspiration pneumonitis. 5. Hx epilepsy, cavernous malformation 6. Hypertension. 7. Diabetes. 8. Depression. 9. Suicide attempt. ~78 propanolol, few tramadol 10. dysphagia/dysphonia 11. urinary retention 12. bradycardias, 2nd degree heart block modified diet continue, per speech therapy continue insulin coverage for now, consider increasing meds if glucose continues to increase deliver critical seizure medications encourage expectoration psychiatry follow up continue medel, consider removal later more k Thank you very much, Dr. Mcfarland, for this consult. Please call for questions.
[2019-11-19] MEDS: AMLODIPINE BESYLATE 5 MG TAB PO SCH (11:01)
[2019-11-19] MEDS ORDERED: POTASSIUM CHLORIDE 20MEQ/15ML UDC PO ONE (11:30)
--- NOTE | 2019-11-19 11:58 | Progress Note ---
DATE: 11/19/2019 CONSULTANTS: 1. Dr. Milan with document review specialist. 2. Dr. Reina with Psychiatry. 3. Dr. Wilkinson with ENT. 4. Dr. Leonard with Neurology. 5. Dr. Bueno with Cardiology. CHIEF COMPLAINT: Respiratory failure due to overdose. SUBJECTIVE: The patient is out of ICU in [facility]. Sitter at bedside, she denies any chest pain, shortness of breath, nausea, vomiting. She continues to have Pineda catheter due to urinary retention. PHYSICAL EXAMINATION: VITAL SIGNS: Temperature is 98.5, pulse is 71, respirations 18, blood pressure 182/90, pulse ox is 98% on 2 L of oxygen. GENERAL: Fatigue. HEENT: Normocephalic, atraumatic. NECK: Supple. CARDIOVASCULAR: Regular rate and rhythm. LUNGS: Decreased breath sounds. ABDOMEN: Soft and nontender, obese. NEUROLOGIC: Alert, awake, and oriented x3. MUSCULOSKELETAL: Moves all extremities. SKIN: Dry. PSYCH: Depressed. LABORATORY DATA: WBC 5.63, hemoglobin is 12.5, hematocrit 38.5, platelet 185. Sodium 142, potassium 3.6, BUN is less than 5, creatinine 0.55, estimated GFR greater than 60, calcium 8.8, TSH 4.41. Chest x-ray, stable basilar atelectasis. Prominent pulmonary arteries suggestive of pulmonary artery hypertension. IMPRESSION: 1. Acute respiratory failure, present on admission due to aspiration pneumonia. 2. Aspiration pneumonia with fever. Continue IV antibiotics and treatment, status post extubation. 3. Suicide attempt with overdose of Tylenol and tramadol. One-to-one sitter. Effexor has been started per Psych. Inpatient psych treatment once medically cleared. 4. Seizure disorder. We will continue on Keppra. Neurology is on the case. 5. Dysphagia. Passed swallowing test. ENT consulted, scope revealed laceration of posterior commissure of the larynx and laryngeal pharynx with laryngeal reflux. We will continue with PPI and full/diet. 6. Accelerated hypertension. We will start on Norvasc and treat as needed with hydralazine. 7. Diabetes. Continue sliding scale insulin. 8. Bradycardia and Wenckebach atrioventricular block. Cardiology has been consulted. We will avoid beta-blockers and continue to monitor on tele. 9. Severe depression. Continue with Effexor and defer to Psych. 10. Deep vein thrombosis prophylaxis. Continue on Lovenox. PLAN: Continue tele monitor, one-to-one sitter, we will perform inpatient psych transfer once medically cleared. Dictated by MADDIE Orr Ishaching Alexy Mcfarland MD MY/MODL /[id number] Seen and examined, discussed with Dr. Danny Barreto. Agree with the findings and plan as documented by MADDIE Perez. BIANCA
[2019-11-19] MEDS: LOSARTAN POTASSIUM 100 MG TAB PO SCH ×2 (13:18→17:00)
[2019-11-19] MEDS: LACTOBACILLUS ACIDOPHILUS CAPSULE PO SCH ×2 (13:18→20:08)
--- NOTE | 2019-11-19 14:21 | Diagnostic Imaging Report ---
Abdominal series including frontal view of the chest and upright and supine views of the abdomen. Clinical indication: Cough, abdominal distention Comparison: Abdomen and pelvis performed 08/22/2018 Findings: The heart is within normal limits of size. Bibasilar atelectasis is present. No focal consolidation, sizable pleural effusion, or pneumothorax. No dilated loops small or large bowel are identified to suggest obstruction. No air-fluid levels are present. There is no free air. High density material is present throughout the colon which is likely barium from recent modified barium swallow study performed 11/17/2019. Impression: 1. Bibasilar atelectasis. 2. Nonobstructive bowel gas pattern. Signed by: Delgado Hamlin MD on 11/19/2019 2:18 PM
--- NOTE | 2019-11-19 14:30 | NUR ---
Flushed IV to connect IV antibiotic, line started leaking. Discontinued IV with tip intact, pressure applied to site, no bleeding noted.
--- NOTE | 2019-11-19 15:30 | NUR ---
UNABLE TO OBTAIN IV ACCESS FOR PATIENT AT THIS TIME. WILL NOTIFY ATTENDING.
--- NOTE | 2019-11-19 15:31 | NUR ---
NO NEED FOR NEW IV ACCESS PER LIVESTOCK HANDLER.
--- NOTE | 2019-11-19 15:31 | NUR ---
NOTIFIED PERLA SANTIAGO THAT UNABLE TO GET IV LINE FOR PATIENT. PER ACTUARY, DC IV ANTIBIOTICS AND START PATIENT ON PO DOXYCYCLINE. NEW ORDERS PLACED.
[2019-11-19] MEDS: ENOXAPARIN SOD INJ 40 MG/0.4 ML SYR SC SCH (17:00)
[2019-11-19] MEDS: DOXYCYCLINE HYCLATE TABLET 100 MG TAB PO SCH (17:00)
--- NOTE | 2019-11-19 19:00 | NUR ---
RECEIVED PATIENT IN BEDSIDE SHIFT REPORT. DIRECTOR OF PHILANTHROPY 1:1 SITTER IS PRESENT. FAMILY AT BEDSIDE. PAIN TO NECK REPORTED, WILL MEDICATE. PATIENT SITTING IN RECLINER AT BEDSIDE. NO DIFFICULTY BREATHING REPORTED AT THIS TIME, NO COUGHING. NO IV ACCESS, OKAY PER VARIETY PERFORMER. MEDS SWITCHED TO PO. IV TUBING REMOVED FROM ROOM. NO NEEDS EXPRESSED AT THIS TIME. PATIENT REPORTS NO SUICIDAL THOUGHTS, JUST LOW MOOD, BUT SHE IS SEEING MORE THAT HER FAMILY NEEDS AND WANTS HER AROUND. WILL CONTINUE TO ASSESS FOR SUICIDALITY. BED LOCKED IN LOWEST POSITION, SIDE RAILS UPX2, CALL LIGHT IN REACH.
--- NOTE | 2019-11-19 19:09 | NUR ---
BEDSIDE SHIFT REPORT GIVEN TO ONCOMING NURSE. PATIENT IS IN STABLE CONDITION. 1:1 SITTER AT BEDSIDE. CALL LIGHT WITHIN REACH. BED IN THE LOWEST POSITION.
[2019-11-19] MEDS ORDERED: ONDANSETRON HCL 4 MG ORAL DISINTEGRATING TAB PO PRN (20:00)
[2019-11-19] MEDS: LEVETIRACETAM 500 MG TAB PO SCH (20:08)
[2019-11-19] MEDS: CLONIDINE HCL 0.1 MG TAB PO PRN (20:09)
[2019-11-19] MEDS: ACETAMINOPHEN 325 MG TAB PO PRN (20:09)
[2019-11-20] VITALS (8 sets, daily range): BP systolic 124–194; BP diastolic 69–89
--- NOTE | 2019-11-20 03:00 | Consultation ---
DATE OF CONSULTATION: 11/19/2019 SERVICE: Urology. REASON FOR THE VISIT: Urinary retention. HISTORY OF PRESENT ILLNESS: This is a 53-year-old patient who has multiple medical problem and she did fail a voiding trial and has now a Pineda catheter in place. The patient states that she did not have in the past episodes of the acute urinary retention. PAST MEDICAL HISTORY: Significant for multiple medical problems includin. Obesity. 2. Drug overdose. 3. Diabetes mellitus. 4. Seizures. 5. Hypertension. 6. Depression. 7. History of cluster headaches. 8. Presently respiratory failure. FAMILY HISTORY: Noncontributory. ALLERGIES: TO MEDICATION TOPIRAMATE. MEDICATIONS: See MAR. PHYSICAL EXAMINATION: GENERAL: The patient presently is alert and oriented. She is overweight. VITAL SIGNS: Blood pressure 142/80, pulse 62, respiration 18. HEAD: Symmetric. EYES: No movement. NECK: No JVD. No masses. CHEST: Clear. HEART: Regular. ABDOMEN: Soft. EXTERNAL GENITALIA: Pineda catheter in place. EXTREMITIES: Lower extremities move all. LABORATORY DATA: Reviewed. IMPRESSION: 1. Acute urinary retention. 2. Morbid obesity. 3. History of suicidal attempt with acute respiratory failure. 4. Hypertension. 5. Diabetes mellitus. 6. Cluster headaches. 7. History of depression. PLAN: I would recommend to keep the Pineda catheter in place for now. When the patient will be more mobile, we will reassess a trial of voiding. In the future she may need hysteroscopy and urodynamic to assist the function of the bladder. Thank you for the consult. I will follow with you. Rasta Barreto MD NH/MODL /[id number]
--- NOTE | 2019-11-20 06:50 | NUR ---
RECEIVED BEDSIDE SHIFT REPORT FROM OFF GOING NURSE. PATIENT IS RESTING IN RECLINER, NO ACUTE DISTRESS NOTED. 1:1 SITTER AT BEDSIDE. CALL LIGHT WITHIN REACH. BED IN THE LOWEST POSITION.
[2019-11-20] MEDS: INSULIN REGULAR, HUMAN 100 UNIT/1 ML 3ML VIAL SQ SCH ×4 (07:30→21:41)
[2019-11-20] MEDS: PANTOPRAZOLE SOD 40 MG TABEC PO SCH (07:56)
[2019-11-20] MEDS: VENLAFAXINE HCL 37.5MG XR CAP PO SCH (07:57)
[2019-11-20] MEDS: LOSARTAN POTASSIUM 100 MG TAB PO SCH ×3 (07:57→17:55)
[2019-11-20] MEDS: VIMPAT 200 MG PO SCH ×2 (07:57→16:47)
[2019-11-20] MEDS: DOXYCYCLINE HYCLATE TABLET 100 MG TAB PO SCH ×2 (07:57→21:31)
[2019-11-20] MEDS: AMLODIPINE BESYLATE 5 MG TAB PO SCH ×3 (07:57→17:55)
[2019-11-20] MEDS: LEVETIRACETAM 500 MG TAB PO SCH ×2 (07:57→21:32)
[2019-11-20] MEDS: LACTOBACILLUS ACIDOPHILUS CAPSULE PO SCH ×2 (07:57→21:31)
[2019-11-20] MEDS: CARBAMAZEPINE 200 MG TAB PO SCH ×2 (07:57→21:31)
--- NOTE | 2019-11-20 13:09 | NUR ---
Pulmonary Critical Care Medicine DATE 11/20/2019 SUBJECTIVE: finally ate well yesterday medel in no BM in few days RA fio2 sitting up REVIEW OF SYSTEMS: no headaches, no rash OBJECTIVE: VITAL SIGNS: Reviewed per the chart record. GENERAL: Awake on ventilator, intubated. HEENT: Normocephalic, atraumatic. NECK: Supple. Throat midline. LUNGS: Bilateral air entry, moderate rhonchi bilaterally CARDIOVASCULAR: S1, S2. No murmurs, rubs, or gallops. ABDOMEN: Soft, nontender. EXTREMITIES: No clubbing, no cyanosis, no edema. INTEGUMENT: No rash or purpura. LABORATORY DATA: no new updates IMPRESSION AND PLAN: 1. Acute respiratory failure, intubated/extubated 2. Encephalopathy, Toxic/metabolic. resolved 3. Aspiration pneumonitis. 5. Hx epilepsy, cavernous malformation 6. Hypertension. 7. Diabetes. 8. Depression. 9. Suicide attempt. ~7-8 propanolol, few tramadol ?2 10. dysphagia/dysphonia 11. urinary retention 12. bradycardias, 2nd degree heart block modified diet continue, per speech therapy increase insulin coverage, glucose often in 200's now deliver critical seizure medications encourage expectoration psychiatry follow up continue medel, consider removal later Thank you very much, Dr. Mcfarland, for this consult. Please call for questions.
[2019-11-20] MEDS: CLONIDINE HCL 0.1 MG TAB PO PRN ×2 (14:22→20:14)
[2019-11-20] MEDS: ENOXAPARIN SOD INJ 40 MG/0.4 ML SYR SC SCH (16:47)
--- NOTE | 2019-11-20 16:52 | Progress Note ---
DATE: 11/20/2019 CONSULTANTS: 1. Dr. Milan with newspaper manager. 2. Dr. Reina with Psychiatry. 3. Dr. Wilkinson with ENT. 4. Dr. Leonard with Neurology. 5. Dr. Bueno with Cardiology. CHIEF COMPLAINT: Respiratory failure due to overdose on multiple drugs. SUBJECTIVE: The patient is seen sitting in a recliner chair. Reports increased cough at night. She denies any shortness of breath, chest pain, nausea, or vomiting. Pineda catheter in place, sitter at bedside for SI. PHYSICAL EXAMINATION: VITAL SIGNS: Temperature 97.5, pulse is 78, respirations 20, blood pressure 178/83, and pulse ox 96% on room air. GENERAL: Fatigue. HEENT: Normocephalic, atraumatic. NECK: Supple. CARDIOVASCULAR: Regular rate and rhythm. LUNGS: Decreased breath sounds. ABDOMEN: Soft and nontender. Obese. NEUROLOGIC: Alert, awake, and oriented x3. MUSCULOSKELETAL: Moves all extremities. SKIN: Dry. PSYCH: Depressed. SI with sitter at bedside. IMPRESSION: 1. Acute respiratory failure, status post intubation. Likely due to aspiration pneumonia versus drug overdose. 2. Aspiration pneumonia with fever. Continue antibiotics status post extubation. We will continue to monitor closely. X-ray shows bibasilar atelectasis. 3. Suicide attempt with overdose of propranolol and tramadol. Sitter at bedside. Psych has been consulted and continue on Effexor. Inpatient psych treatment once medically cleared. 4. Seizure disorder. We will continue on Keppra, defer to new Neurology. 5. Dysphagia. Swallowing test was negative. ENT consulted. Scope revealed laceration of posterior commissure of the larynx and laryngeal pharynx with laryngeal reflux. We will continue with PPI and advance diet as tolerated. 6. Accelerated hypertension. We will increase Norvasc to 5 b.i.d., she is on home losartan and hold beta-blockers. Also, continue with clonidine p.r.n. 7. Diabetes. Continue sliding scale insulin. 8. Bradycardia with Wenckebach AV block. Cardiology has been consulted. We will avoid beta blockers, echo has been noted. Further recommendations per Cardiology. 9. Severe depression with Suicidal ideation/suicide attempt. Continue with Effexor and inpatient psych upon discharge. 10. Urinary retention. A Pineda has been placed. Urology has been consulted. 11. Deep vein thrombosis prophylaxis. Continue on Lovenox. PLAN: To continue tele monitor, one-to-one sitter for suicide precaution. We will await Urology input before being able to transfer to inpatient psych. Dictated by MADDIE Orr Yiching Alexy Mcfarland MD MY/MODL /[id number]
--- NOTE | 2019-11-20 17:21 | NUR ---
s: incrased cough no siezure patient reports she is feeling depressed but no seizures vs 98.1 80 142/58 aox3 no nuchal rigidity calm rrr cta abd soft eomi perrl face symmetric, speech clear and coherent motor 5/5 no tremor reflexes 1/4 no ataxia ap- seizure disorder - 2/2 cavernous malformation in inferior-orbial region consider laser vs jolene knife to ablate lesion, or if not a candidate as outpt can adjust aed or consider VNS discussed w/ patient no acute neuro changes at this time conintune current aed medicaiton and outtp follow up w/ pcp neuro
--- NOTE | 2019-11-20 17:22 | NUR ---
Nutrition Screen Note RD Recommendation for Physician: - Continue current diet as ordered Plan of Care: RD following, monitoring for tolerance and adequacy Nutrition reason for involvement: LOS Primary Diagnose(s): Acute respiratory failure (resolved), aspiration PNA, suicidal attempt PMH: morbidly obese, type 2 diabetes, seizures on 3 anti-seizure medications, hypertension, depression Ht: 61in Wt: 278lb BMI: 52.6kg/m2 IBW: 105lb +/- 10% RD Assessment: (11/20) Chart reviewed. Labs and meds reviewed. 53yo F, who was admitted for multidrug overdose and suicidal attempt. Pt was seen by RETURNS PROCESSOR for mild dysphagia. Visited pt in the room. Pt reported improvement in her appetite. Pt tolerated current diet texture. Pt denied any nausea or vomiting. Weight has been stable. No other complains at time of visit. Will continue to monitor and follow. Current Diet: ADA 1800 (mechanical soft, nectar thick) Malnutrition Evaluation (11/20) The patient does not meet criteria for a specified degree of malnutrition at this time. Will re-evaluate at follow-up as appropriate. Diet Education Needs Assessment: Diet education not indicated. Nutrition Care Level: low Signed: My Schultz, MS, RD, LD
--- NOTE | 2019-11-20 19:00 | NUR ---
REPORT RECEIVED FROM DAY RN. PT IS ALERT AND ORIENTED X4. PT IS SITTING IN RECLINER. AT BEDSIDE. SITTER AT BEDSIDE- PT REMAINS ON 1:1 SITTER AT ALL TIMES. PT IS COOPERATIVE WITH CARE. NO IV PRESENT. RESPIRATIONS ARE EVEN AND UNLABORED.REMAINS ON ROOM AIR. INTERMITENT NONPRODUCTIVE COUGH NOTED. TELE MONITOR ON- #28. PT HAS HX SEIZURE- ON SEIZURE PRECAUTIONS- NONE NOTED. TSAI PATENT.CALL LIGHT WITHIN REACH. BED IN LOW POSITION.
--- NOTE | 2019-11-20 19:20 | NUR ---
Bedside shift report given to oncoming nurse. Patient is resting in recliner, no acute distress noted. 1:1 sitter at bedside. Call light within reach. Bed in the lowest position.
[2019-11-20] MEDS: ACETAMINOPHEN 325 MG TAB PO PRN (20:14)
[2019-11-21] VITALS (8 sets, daily range): BP systolic 136–174; BP diastolic 47–77
--- NOTE | 2019-11-21 05:16 | NUR ---
Pulmonary Critical Care Medicine DATE 11/21/2019 SUBJECTIVE: RA FiO2 Intermittent sleep during the night sleeps sitting in chair sitter(+) REVIEW OF SYSTEMS: no headaches, no rash OBJECTIVE: VITAL SIGNS: Reviewed per the chart record. GENERAL: NAD, Calm, finally asleep HEENT: Normocephalic, atraumatic. NECK: Supple. Throat midline. LUNGS: Bilateral air entry, clear CARDIOVASCULAR: S1, S2. No murmurs, rubs, or gallops. ABDOMEN: Soft, nontender. EXTREMITIES: No clubbing, no cyanosis, 1+ edema. INTEGUMENT: No rash or purpura. LABORATORY DATA: no new updates IMPRESSION AND PLAN: 1. Acute respiratory failure, intubated/extubated 2. Encephalopathy, Toxic/metabolic. resolved 3. Aspiration pneumonitis. 5. Hx epilepsy, cavernous malformation 6. Hypertension. 7. Diabetes. 8. Depression. 9. Suicide attempt. ~7-8 propanolol, few tramadol ?2 10. dysphagia/dysphonia 11. urinary retention 12. bradycardias, 2nd degree heart block modified diet continue, per speech therapy follow on increased insulin coverage, implanted glucometer in place deliver critical seizure medications encourage expectoration psychiatry follow up, 1:1 Thank you very much, Dr. Mcfarland, for this consult. Please call for questions.
--- NOTE | 2019-11-21 06:40 | NUR ---
Received bedside shift report from off going nurse. Patient is in stable condition, no acute distress noted. 1:1 sitter at bedside. Call light within reach. Bed in the lowest position.
[2019-11-21] MEDS: AMLODIPINE BESYLATE 5 MG TAB PO SCH ×2 (08:29→22:06)
[2019-11-21] MEDS: LEVETIRACETAM 500 MG TAB PO SCH ×2 (08:29→22:06)
[2019-11-21] MEDS: CARBAMAZEPINE 200 MG TAB PO SCH ×2 (08:29→22:05)
[2019-11-21] MEDS: LOSARTAN POTASSIUM 100 MG TAB PO SCH ×2 (08:29→22:07)
[2019-11-21] MEDS: VIMPAT 200 MG PO SCH ×2 (08:29→16:01)
[2019-11-21] MEDS: VENLAFAXINE HCL 37.5MG XR CAP PO SCH (08:29)
[2019-11-21] MEDS: LACTOBACILLUS ACIDOPHILUS CAPSULE PO SCH ×2 (08:29→22:08)
[2019-11-21] MEDS: INSULIN REGULAR, HUMAN 100 UNIT/1 ML 3ML VIAL SQ SCH ×4 (08:29→22:01)
[2019-11-21] MEDS: PANTOPRAZOLE SOD 40 MG TABEC PO SCH (08:29)
[2019-11-21] MEDS: DOXYCYCLINE HYCLATE TABLET 100 MG TAB PO SCH ×2 (08:29→22:08)
[2019-11-21] MEDS: CLONIDINE HCL 0.1 MG TAB PO PRN (16:00)
[2019-11-21] MEDS: ENOXAPARIN SOD INJ 40 MG/0.4 ML SYR SC SCH (16:01)
--- NOTE | 2019-11-21 16:36 | Progress Note ---
DATE: 11/21/2019 CONSULTANTS: 1. Dr. Milan with snow remover. 2. Dr. Reina with Psychiatry. 3. Dr. Wilkinson with ENT. 4. Dr. Leonard with Neurology. 5. Dr. Bueno with Cardiology. CHIEF COMPLAINT: Respiratory failure due to overdose on multiple drugs. SUBJECTIVE: Sitter at bedside, seen resting in bed with no acute distress. Reports cough is improving some. She denies any shortness of breath, chest pain, nausea, or vomiting. PHYSICAL EXAMINATION: VITAL SIGNS: Temperature 96.9, pulse is 86, respirations 20, blood pressure 155/77, pulse ox is 97% on room air. GENERAL: Fatigue. HEENT: Normocephalic, atraumatic. NECK: Supple. CARDIOVASCULAR: Regular rate and rhythm. LUNGS: Decreased breath sounds. ABDOMEN: Soft and nontender, obese. NEUROLOGIC: Alert, awake, and oriented x3. MUSCULOSKELETAL: Moves all extremities. SKIN: Dry. PSYCH: Depressed with suicidal ideation. Sitter at bedside. IMPRESSION: 1. Acute respiratory failure, status post intubation. Likely due to aspiration pneumonia versus drug overdose. 2. Aspiration pneumonia with fever. Continue antibiotics, status post extubation. We will monitor closely. 3. Suicidal attempt with overdose. Sitter at bedside. Inpatient psych treatment once medically stable. 4. Seizure disorder. We will continue on Keppra and defer to Neurology. 5. Dysphagia. Swallowing test was negative. ENT consulted. Scope revealed laceration of posterior commissure of the larynx and laryngeal pharynx with laryngeal reflux. We will continue on PPI and advance diet as tolerated. 6. Accelerated hypertension. Continue Norvasc and losartan. Hydralazine IV as needed and clonidine as needed. 7. Diabetes. Continue sliding scale insulin. 8. Bradycardia with Wenckebach atrioventricular block. Cardiology on the case. We will hold beta-blockers. Echo noted, further recommendation per Cardiology. 9. Severe depression with suicidal ideation/attempt. Continue with Effexor and inpatient psych upon discharge. 10. Urinary retention. Pineda in place. Urology has been consulted. 11. Deep vein thrombosis prophylaxis. Continue on Lovenox. PLAN: Continue telemonitor, one-to-one sitter for suicide precaution. May discharge to inpatient psych once Urology clears. Dictated by MADDIE Orr Yiching MD PENELOPE Alexandre/CELESTE /[id number]
--- NOTE | 2019-11-21 18:41 | NUR ---
Per Dr. Puentes, medel is to be discontinued tomorrow at 0800.
--- NOTE | 2019-11-21 19:00 | NUR ---
REPORT RECEIVED FROM DAY RN. PT SITTING IN RECLINER. TELE ON. RESPIRATIONS REGULAR AND NONLABORED. PT REPORTS BM 11/21/19. PT DENIES PAIN. 1:1 SITTER AT BEDSIDE. REMAINS ON SUICIDE PRECAUTIONS- PT COOPERATIVE WITH CARE. TSAI TO GRAVITY- URINE CLEAR YELLOW. PT TOLERATING PO WELL. CALL LIGHT WITHIN REACH. BED IN LOW POSITION.PT AMBULATE WITH ASSIST TO BATHROOM.
[2019-11-22] VITALS: BP 142/77
[2019-11-22 04:00] VITALS: BP 155/67
[2019-11-22] MEDS: INSULIN REGULAR, HUMAN 100 UNIT/1 ML 3ML VIAL SQ SCH ×2 (07:30→12:15)
[2019-11-22 08:30] VITALS: BP 152/68
[2019-11-22] MEDS: VIMPAT 200 MG PO SCH ×2 (09:00→17:00)
[2019-11-22] MEDS: PANTOPRAZOLE SOD 40 MG TABEC PO SCH (09:50)
[2019-11-22] MEDS: LOSARTAN POTASSIUM 100 MG TAB PO SCH (09:51)
[2019-11-22] MEDS: LEVETIRACETAM 500 MG TAB PO SCH (09:53)
[2019-11-22] MEDS: LACTOBACILLUS ACIDOPHILUS CAPSULE PO SCH (09:53)
[2019-11-22] MEDS: CARBAMAZEPINE 200 MG TAB PO SCH (09:53)
[2019-11-22] MEDS: AMLODIPINE BESYLATE 5 MG TAB PO SCH (09:53)
[2019-11-22] MEDS: DOXYCYCLINE HYCLATE TABLET 100 MG TAB PO SCH (09:54)
[2019-11-22] MEDS: VENLAFAXINE HCL 37.5MG XR CAP PO SCH (09:54)
[2019-11-22 09:56] VITALS: BP 152/68
--- NOTE | 2019-11-22 10:19 | NUR ---
removed medel catheter and emptied 300ml of urine from collection bag
--- NOTE | 2019-11-22 11:24 | Progress Note ---
DATE: 11/22/2019 CONSULTANTS: 1. Dr. Milan with laborer aquatic life. 2. Dr. Reina with Psychiatry. 3. Dr. Wilkinson with ENT. 4. Dr. Leonard with Neurology. 5. Dr. Bueno with Cardiology. CHIEF COMPLAINT: Respiratory failure due to overdose on multiple drugs. SUBJECTIVE: The patient is much more alert, awake, oriented x3 with no acute distress. Reports cough is improving, she denies any chest pain, shortness of breath, nausea, or vomiting. Pineda is to be removed today and RN will teach self-catheterization q.4 hours. PHYSICAL EXAMINATION: VITAL SIGNS: Temperature 98.9, pulse is 92, respirations 20, blood pressure 152/68, pulse ox is 95% on room air. GENERAL: No acute distress. HEENT: Normocephalic, atraumatic. NECK: Supple. CARDIOVASCULAR: Regular rate and rhythm. LUNGS: Clear to auscultation. ABDOMEN: Soft and nontender, obese. NEUROLOGIC: Alert, awake, and oriented x3. MUSCULOSKELETAL: Moves all extremities. PSYCH: Depressed with SI. IMPRESSION: 1. Acute respiratory failure, status post intubation, now extubated due to overdose. 2. Aspiration pneumonia with fever. Continue antibiotics status post extubation. We will continue to monitor. 3. Suicide attempt with overdose. Sitter at bedside, pending inpatient psych transfer. 4. Seizure disorders. We will continue on Keppra and defer to Neurology. 5. Dysphagia. Swallowing test was negative. ENT scope reveals laceration of posterior commissure of the larynx and laryngeal pharynx with laryngeal reflux. We will continue with PPI and continue on soft diet. 6. Accelerated hypertension. Continue Norvasc and losartan. P.r.n. clonidine. 7. Diabetes. Sliding scale insulin as needed. 8. Bradycardia with Wenckebach atrioventricular block. Cardiology on the case. We will avoid beta-alvin use. Echo noted. Further recommendation per Cardiology. 9. Severe depression with suicidal ideation/attempt. Continue on Effexor and inpatient psych upon discharge. 10. Urinary retention. Pineda to be discontinued today and self cath to be taught by staff. Urology has been consulted, will need outpatient followup. 11. Deep vein thrombosis prophylaxis. Continue Lovenox. PLAN: The patient is medically stable and may be discharged to inpatient psych once is able to self cath. Dictated by Smiley Perez, ANP Yiching MD PENELOPE Alexandre/CELESTE /[id number]
--- NOTE | 2019-11-22 11:41 | NUR ---
Pulmonary Critical Care Medicine DATE 11/22/2019 SUBJECTIVE: RA FiO2 less swelling medel trial of void REVIEW OF SYSTEMS: no headaches, no rash OBJECTIVE: VITAL SIGNS: Reviewed per the chart record. GENERAL: NAD, Calm HEENT: Normocephalic, atraumatic. NECK: Supple. Throat midline. LUNGS: Bilateral air entry, clear CARDIOVASCULAR: S1, S2. No murmurs, rubs, or gallops. ABDOMEN: Soft, nontender. EXTREMITIES: No clubbing, no cyanosis, 1+ edema. INTEGUMENT: No rash or purpura. LABORATORY DATA: no new updates IMPRESSION AND PLAN: 1. Acute respiratory failure, intubated/extubated 2. Encephalopathy, Toxic/metabolic. resolved 3. Aspiration pneumonitis. 5. Hx epilepsy, cavernous malformation 6. Hypertension. 7. Diabetes. 8. Depression. 9. Suicide attempt. ~7-8 propanolol, few tramadol ?2 10. dysphagia/dysphonia, better 11. urinary retention 12. bradycardias, 2nd degree heart block wemary modified diet continue, per speech therapy follow on increased insulin coverage, implanted glucometer in place deliver critical seizure medications encourage expectoration psychiatry follow up, 1:1 per psychiatry trial of void today Thank you very much, Dr. Mcfarland, for this consult. Please call for questions.
[2019-11-22 12:16] VITALS: BP 158/66
--- NOTE | 2019-11-22 12:38 | NUR ---
FAXED CLINICALS TO [facility] FOR TRANSFER. DR BOBBY WILL CONTINUE CARE AT THAT [facility]. NURSE TO NURSE WILL CALL [phone] AND ASK FOR INTAKE, WHEN READY FOR AMBULANCE TRANSPORT THEN WILL FOLLOW PROCEDURE TO SET UP AMBULANCE TRANSPORT.
--- NOTE | 2019-11-22 13:55 | NUR ---
SPOKE WITH [facility] THEY ARE CONCERNED PT IS MEDICALLY COMPLEX AND THEY ARE GOING TO DENY. LET PT KNOW AND SHE IS OKAY WITH GOING TO [facility]. SIGNED CHOICE FILED ON CHART AND FAXED CLINICALS. LET SWIMMING COACH OR INSTRUCTOR FOR PSYCH AND SHE STATES IF [facility] DOES NOT ACCEPT THEN WE WILL NEED TO GET WITH MAT TEAM TO ASSIST WITH PLACEMENT.
[2019-11-22 15:35] VITALS: BP 177/86
--- NOTE | 2019-11-22 16:55 | NUR ---
PT ACCEPTED TO [facility], [address] [facility] [id number] , LET NURSE KNOW, OBTAINED PERMISSION FOR TO TRANSPORT TO FACILITY AND SPOKE WITH SPIRITS MODEL TO GET DISCHARGE.
--- NOTE | 2019-11-24 05:35 | Discharge Summary ---
PRIMARY CARE PHYSICIAN: Dr. Marlow with [facility]. FINAL DIAGNOSES: 1. Acute respiratory failure due to overdose. 2. Aspiration pneumonia. 3. Suicidal attempt with overdose of multiple prescription drugs. 4. Seizure disorder. 5. Dysphagia. 6. Accelerated hypertension. 7. Diabetes. 8. Wenckebach AV block. 9. Severe depression. 10. Urinary retention. CONSULTANTS: 1. Dr. Milan with field irrigation worker. 2. Dr. Reina with Psychiatry. 3. Dr. Saha with ENT. 4. Dr. Aisha Yao with Neurology. 5. Dr. Bueno with Cardiology. PROCEDURES: Intubation and extubation. She also underwent a scope per ENT, which showed laceration of posterior commissioner at the larynx and laryngeal pharynx and laryngeal reflux. HISTORY: Per HPI. HOSPITAL COURSE: This is a 53-year-old female who was admitted after overdosing on tramadol and propranolol to commit suicide. She was brought in, intubated on the field. She was monitored in the ICU and extubated. She was started on Keppra IV per Neurology, Dr. Reina with Psychiatry was consulted. She continued to improve, speech therapy was consulted for swallowing eval, which was negative. But continue to cough. So, ENT was consulted and conducted scope which showed laceration of posterior commissure of the larynx and laryngeal pharynx with laryngeal reflux. She was started on PPI and soft diet as tolerated. She was also noted to have bradycardia, heart rate dropping to the low 30s and 40s with EKG showed Wenckebach AV block. Cardiology was consulted, echocardiogram was done and instructed to hold off on beta-blockers. Blood pressure medication adjusted. Psych was consulted and recommended inpatient psychiatric treatment, which her and her family are in agreement. She was started on Effexor for severe depression. She was also having problem with urinary retention, which could be a result of her overdose, Urology was consulted and recommended Pineda catheter. Self-catheterization was instructed to the patient and will discharge to inpatient psych to complete her psych treatment. We will need to follow up as outpatient with Urology if continues to be a problem. She remains stable, afebrile, vital signs stable. PHYSICAL EXAMINATION: VITAL SIGNS: Temperature 98.6, pulse is 87, respirations 20, blood pressure 177/86, pulse ox 97% on room air. GENERAL: No acute distress. HEENT: Normocephalic, atraumatic. NECK: Supple. CARDIOVASCULAR: Regular rate and rhythm. LUNGS: Clear. ABDOMEN: Soft and nontender. NEUROLOGIC: Alert, awake, and oriented x3. MUSCULOSKELETAL: Moves all extremities. PSYCH: Depressed. CONDITION AT DISCHARGE: Stable and improved. DISCHARGE MEDICATIONS: Please see medication reconciliation list. FOLLOWUP: Follow up with PCP, Neurology, Cardiology and Urology. The patient was transported by her who is an [employer] after signing responsibility for her to take her to the facility inpatient psych. Risks explained and agrees with plan. TIME SPENT: Total time of discharge is 35 minutes. Dictated by MADDIE Orr Alison Mcfarland MD MY/MODL /[id number] cc: [facility]
== END 2019-11-22 18:43 | DRG 208 ==
LOC: ER 17:34 → ERHOLD 18:23 → ICU 22:50 → MED/SURG 11-18 20:34
PROVIDERS: ADMIT Internal Medicine; ATTEND Internal Medicine
PROC: 5A1935Z Respiratory Ventilation, Less than 24 Consecutive Hours (ICD-10-PCS; principal; 2019-11-15)
DX: J96.00 Acute respiratory failure, unspecified whether with hypoxia or hypercapnia (principal); J69.0 Pneumonitis due to inhalation of food and vomit; G92 Toxic encephalopathy; S11.01 Open wound of larynx; Z68.42 Body mass index [BMI] 45.0-49.9, adult; F33.2 Major depressive disorder, recurrent severe without psychotic features; Z91.5 Personal history of self-harm; I10 Essential (primary) hypertension; G40.909 Epilepsy, unspecified, not intractable, without status epilepticus; E66.01 Morbid (severe) obesity due to excess calories; G44.009 Cluster headache syndrome, unspecified, not intractable; E11.9 Type 2 diabetes mellitus without complications; R33.9 Retention of urine, unspecified; R13.10 Dysphagia, unspecified; F41.9 Anxiety disorder, unspecified; I44.30 Unspecified atrioventricular block; T40.4X2A Poisoning by other synthetic narcotics, intentional self-harm, initial encounter; T39.1X2A Poisoning by 4-Aminophenol derivatives, intentional self-harm, initial encounter
CPT/HCPCS: 31500; 36415; 36555; 36600; 51700; 70450; 71045; 74022; 74230; 80048; 80053; 80307; 80320; 80329; 81001; 81025; 82550; 82553; 82805; 83605; 83735; 83880; 84100; 84443; 84484; 85025; 87040; 87086; 93005; 93306; 94002; 94003; 96372; 96374; 97139; 99285; J0330; J0360; J0610; J1610; J1650; J1817; J2405; J2543; J3480; J7030; J7050; J7799